=== PATIENT | female | born 1940 | race Caucasian/White ===

== ENCOUNTER 2018-10-20 15:24 | Inpatient (IN) | payer MEDICARE, BC ==
--- NOTE | 2018-10-20 14:38 | EDM.PDOC ---
ED HPI GENERAL MEDICAL PROBLEM - General Stated Complaint: WEAKNESS Time Seen by Provider: 10/20/18 14:25 Source of Information: Reports: Patient - History of Present Illness INITIAL COMMENTS - FREE TEXT/NARRATIVE: pt comes from assisted living with non-specific complaints , states for the past 2 days has been feeling gen weakness and not much of appetite, pt denies fever chills or any acute other sx, pt report Hx of chronic cough and dyspnea related to her COPD and tells me this has not changed lately, pt here appear comfortable with stable vitals, pt has no other medical concerns. - Related Data Allergies Allergy/AdvReac Type Severity Reaction Status Date / Time No Known Allergies Allergy Verified 10/20/18 14:49 Home Meds: Home Meds Diltiazem HCl [Dilt-Xr] 240 mg PO DAILY 10/20/18 [History] Docusate Sodium [Stool Softener] 100 mg PO DAILY 10/20/18 [History] Losartan [Cozaar] 50 mg PO DAILY 10/20/18 [History] Umeclidinium [place] [Incruse Ellipta] 62.5 mcg IN DAILY 10/20/18 [History] methIMAzole [Methimazole] 5 mg PO DAILY 10/20/18 [History] risperiDONE 0.25 mg PO DAILY 10/20/18 [History] risperiDONE 0.5 mg PO BEDTIME 10/20/18 [History] ED ROS GENERAL - Review of Systems Review Of Systems: See Below Constitutional: Reports: Fatigue. Denies: Fever, Chills HEENT: Reports: No Symptoms Respiratory: Reports: No Symptoms, Shortness of Breath, Cough, Other (pt has unchanged chronic dyspnea and cough. ) Cardiovascular: Reports: No Symptoms GI/Abdominal: Reports: Anorexia. Denies: Abdominal Pain, Constipation, Diarrhea , Nausea, Vomiting Musculoskeletal: Reports: No Symptoms Skin: Reports: No Symptoms Neurological: Reports: No Symptoms ED EXAM, GENERAL - Physical Exam Exam: See Below Exam Limited By: No Limitations General Appearance: Alert, No Apparent Distress Throat/Mouth: Normal Oropharynx Respiratory/Chest: No Respiratory Distress, Lungs Clear, Normal Breath Sounds, Chest Non-Tender Cardiovascular: Normal Peripheral Pulses, Regular Rate, Rhythm, No Edema GI/Abdominal: Normal Bowel Sounds, Soft, Non-Tender Extremities: Normal Inspection, Non-Tender. No: Pedal Edema Course - Vital Signs Text/Narrative:: labs and Xray results were explained to pt. pt has dehydration, elevated WBC and RLL infiltrates . will admit inpatient. pt recieved 1 liter of fluids here over 2 hrs , will continue at 125 cc/hr. blood cultures were taken and will start pt on rocephine and zithromax . discussed code brady with pt and she wishes to be a no code. Last Recorded V/S: Last Vital Signs Temp 36.7 C 10/20/18 14:12 Pulse 57 L 10/20/18 14:12 Resp 21 H 10/20/18 14:12 BP 172/71 H 10/20/18 14:12 Pulse Ox 91 L 10/20/18 14:12 - Orders/Labs/Meds Orders: Active Orders 24 hr Category Date Time Status Patient Status [ADT] Routine ADT 10/20/18 16:43 Active Pulse Oximetry [RC] PRN Care 10/20/18 16:43 Active RT Aerosol Therapy [RC] ASDIRECTED Care 10/20/18 16:49 Active Up With Assistance [RC] ASDIRECTED Care 10/20/18 16:43 Active Vital Signs [RC] Q4H Care 10/20/18 16:43 Active Heart Healthy Diet [DIET] Diet 10/20/18 Breakfast Ordered CXR [Chest 1V Frontal] [CR] Stat Exams 10/20/18 14:40 Taken CULTURE BLOOD [BC] Urgent Lab 10/20/18 16:48 Ordered CULTURE BLOOD [BC] Urgent Lab 10/20/18 16:48 Ordered CULTURE URINE [RM] Stat Lab 10/20/18 16:54 Ordered Albuterol/Ipratropium [DuoNeb 3.0-0.5 MG/3 ML] Med 10/20/18 16:48 Active 3 ml NEB Q6H PRN Azithromycin [Zithromax] 500 mg Med 10/20/18 17:00 Active Sodium Chloride 0.9% [Normal Saline] 250 ml IV Q24H Diltiazem [Dilacor XR] Med 10/21/18 09:00 Active 240 mg PO DAILY Docusate Sodium [Colace] Med 10/21/18 09:00 Active 100 mg PO DAILY Enoxaparin [Lovenox] Med 10/20/18 17:00 Active 40 mg SUBCUT DAILY Losartan [Cozaar] Med 10/21/18 09:00 Active 50 mg PO DAILY Magnesium Hydroxide [Milk of Magnesia] Med 10/20/18 16:43 Active 30 ml PO BID PRN Sodium Chloride 0.9% [Normal Saline] 1,000 ml Med 10/20/18 15:41 Active IV .BOLUS Sodium Chloride 0.9% [Normal Saline] 1,000 ml Med 10/20/18 17:00 Active IV ASDIRECTED cefTRIAXone [Rocephin] 1 gm Med 10/20/18 17:00 Active Sodium Chloride 0.9% [Normal Saline] 50 ml IV Q24H methIMAzole Med 10/21/18 09:00 Active 5 mg PO DAILY risperiDONE [RisperiDAL] Med 10/21/18 09:00 Active 0.25 mg PO DAILY risperiDONE [RisperiDAL] Med 10/20/18 21:00 Active 0.5 mg PO BEDTIME Blood Culture x2 Reflex Set [OM.PC] Urgent Oth 10/20/18 16:47 Ordered Resuscitation Status Routine Resus Stat 10/20/18 16:43 Ordered Medication Orders Albuterol/Ipratropium (Duoneb 3.0-0.5 Mg/3 Ml) 3 ml NEB Q6H PRN PRN Reason: Shortness of Breath Diltiazem HCl (Dilacor Xr) 240 mg PO DAILY [facility] Docusate Sodium (Colace) 100 mg PO DAILY [facility] Enoxaparin Sodium (Lovenox) 40 mg SUBCUT DAILY [facility] Sodium Chloride (Normal Saline) 1,000 mls @ 500 drops/hr IV .BOLUS ONE Stop: 10/21/18 21:40 Last Admin: 10/20/18 16:03 Dose: 500 drops/hr Azithromycin 500 mg/ Sodium (Chloride) 250 mls @ 250 mls/hr IV Q24H [facility] Ceftriaxone Sodium 1 gm/ (Sodium Chloride) 50 mls @ 200 mls/hr IV Q24H [facility] Sodium Chloride (Normal Saline) 1,000 mls @ 125 mls/hr IV ASDIRECTED [facility] Losartan Potassium (Cozaar) 50 mg PO DAILY [facility] Magnesium Hydroxide (Milk Of Magnesia) 30 ml PO BID PRN PRN Reason: Constipation Methimazole (Methimazole) 5 mg PO DAILY [facility] Risperidone (Risperidal) 0.5 mg PO BEDTIME [facility] Risperidone (Risperidal) 0.25 mg PO DAILY [facility] Labs: Laboratory Tests 10/20/18 10/20/18 10/20/18 Range/Units 14:55 14:55 14:55 WBC 24.2 H (4.5-12.0) X10-3/uL RBC 4.17 (3.23-5.20) x10(6)uL Hgb 13.4 (11.5-15.5) g/dL Hct 39.3 (30.0-51.3) % MCV 94.4 (80-96) fL MCH 32.0 (27.7-33.6) pg MCHC 34.0 (32.2-35.4) g/dL RDW 14.5 (11.5-15.5) % Plt Count 418 H (125-369) X10(3)uL MPV 6.7 L (7.4-10.4) fL Add Manual Diff Yes Neutrophils % (Manual) 93 H (46-82) % Band Neutrophils % 1 (0-6) % Lymphocytes % (Manual) 3 L (13-37) % Monocytes % (Manual) 3 L (4-12) % Sodium 126 L (135-145) mmol/L Potassium 4.4 (3.5-5.3) mmol/L Chloride 85 L* (100-110) mmol/L Carbon Dioxide 29 (21-32) mmol/L BUN 36 H (7-18) mg/dL Creatinine 0.8 (0.55-1.02) mg/dL Est Cr Clr Drug Dosing 39.84 mL/min Estimated GFR (MDRD) > 60 (>60) BUN/Creatinine Ratio 45.0 H (9-20) Glucose 63 L (80-116) mg/dL Calcium 9.1 (8.6-10.2) mg/dL Total Bilirubin 0.6 (0.1-1.3) mg/dL AST 41 H (5-25) IU/L ALT 32 (12-36) U/L Alkaline Phosphatase 102 (56-112) IU/L Total Protein 7.5 (6.0-8.0) g/dL Albumin 3.9 (3.2-4.6) g/dL Globulin 3.6 g/dL Albumin/Globulin Ratio 1.1 Urine Color (YELLOW) Urine Appearance (CLEAR) Urine pH (5.0-6.5) Ur Specific [place] (1.010-1.025) Urine Protein (NEGATIVE) mg/dL Urine Glucose (UA) (NORMAL) mg/dL Urine Ketones (NEGATIVE) mg/dL Urine Occult Blood (NEGATIVE) Urine Nitrite (NEGATIVE) Urine Bilirubin (NEGATIVE) Urine Urobilinogen (NEGATIVE) mg/dL Ur Leukocyte Esterase (NEGATIVE) Urine RBC (0-5) Urine WBC (0-5) Ur Squamous Epith Cells (NS,R,O) Urine Bacteria (NS) Ethyl Alcohol < 0.03 (<0.03) % 10/20/18 Range/Units 16:41 WBC (4.5-12.0) X10-3/uL RBC (3.23-5.20) x10(6)uL Hgb (11.5-15.5) g/dL Hct (30.0-51.3) % MCV (80-96) fL MCH (27.7-33.6) pg MCHC (32.2-35.4) g/dL RDW (11.5-15.5) % Plt Count (125-369) X10(3)uL MPV (7.4-10.4) fL Add Manual Diff Neutrophils % (Manual) (46-82) % Band Neutrophils % (0-6) % Lymphocytes % (Manual) (13-37) % Monocytes % (Manual) (4-12) % Sodium (135-145) mmol/L Potassium (3.5-5.3) mmol/L Chloride (100-110) mmol/L Carbon Dioxide (21-32) mmol/L BUN (7-18) mg/dL Creatinine (0.55-1.02) mg/dL Est Cr Clr Drug Dosing mL/min Estimated GFR (MDRD) (>60) BUN/Creatinine Ratio (9-20) Glucose (80-116) mg/dL Calcium (8.6-10.2) mg/dL Total Bilirubin (0.1-1.3) mg/dL AST (5-25) IU/L ALT (12-36) U/L Alkaline Phosphatase (56-112) IU/L Total Protein (6.0-8.0) g/dL Albumin (3.2-4.6) g/dL Globulin g/dL Albumin/Globulin Ratio Urine Color Yellow (YELLOW) Urine Appearance Clear (CLEAR) Urine pH 5.0 (5.0-6.5) Ur Specific [place] 1.025 (1.010-1.025) Urine Protein Negative (NEGATIVE) mg/dL Urine Glucose (UA) Normal (NORMAL) mg/dL Urine Ketones 50 H (NEGATIVE) mg/dL Urine Occult Blood Trace (NEGATIVE) Urine Nitrite Positive H (NEGATIVE) Urine Bilirubin Negative (NEGATIVE) Urine Urobilinogen Normal (NEGATIVE) mg/dL Ur Leukocyte Esterase Negative (NEGATIVE) Urine RBC 0-5 (0-5) Urine WBC 0-5 (0-5) Ur Squamous Epith Cells Few H (NS,R,O) Urine Bacteria Many H (NS) Ethyl Alcohol (<0.03) % Meds: Medications Generic Name Dose Route Start Last Admin Trade Name Freq PRN Reason Stop Dose Admin Albuterol/Ipratropium 3 ml 10/20/18 16:48 Duoneb 3.0-0.5 Mg/3 Ml NEB Q6H PRN Shortness of Breath Diltiazem HCl 240 mg 10/21/18 09:00 Dilacor Xr PO DAILY [facility] Docusate Sodium 100 mg 10/21/18 09:00 Colace PO DAILY [facility] Enoxaparin Sodium 40 mg 10/20/18 17:00 Lovenox SUBCUT DAILY [facility] Sodium Chloride 1,000 mls @ 500 drops/hr 10/20/18 15:41 10/20/18 16:03 Normal Saline IV 10/21/18 21:40 500 drops/hr .BOLUS ONE Administration Azithromycin 500 mg/ Sodium 250 mls @ 250 mls/hr 10/20/18 17:00 Chloride IV Q24H [facility] Ceftriaxone Sodium 1 gm/ 50 mls @ 200 mls/hr 10/20/18 17:00 Sodium Chloride IV Q24H [facility] Sodium Chloride 1,000 mls @ 125 mls/hr 10/20/18 17:00 Normal Saline IV ASDIRECTED [facility] Losartan Potassium 50 mg 10/21/18 09:00 Cozaar PO DAILY [facility] Magnesium Hydroxide 30 ml 10/20/18 16:43 Milk Of Magnesia PO BID PRN Constipation Methimazole 5 mg 10/21/18 09:00 Methimazole PO DAILY [facility] Risperidone 0.5 mg 10/20/18 21:00 Risperidal PO BEDTIME [facility] Risperidone 0.25 mg 10/21/18 09:00 Risperidal PO DAILY [facility] Departure - Departure Time of Disposition: 16:58 Disposition: Admitted As Inpatient 68 Clinical Impression: RLL pneumonia - Discharge Information Instructions: Dental Abscess, [id number], Ingrown Toenail Referrals: Kina Chance NP [Primary Care Provider] - Additional Instructions: follow up with your dentist for your toothache follow up with your primary care for your ingrown toenail - My Orders Last 24 Hours: My Active Orders 10/20/18 14:40 CXR [Chest 1V Frontal] [CR] Stat 10/20/18 15:41 Sodium Chloride 0.9% [Normal Saline] 1,000 ml IV .BOLUS 10/20/18 16:43 Patient Status [ADT] Routine Pulse Oximetry [RC] PRN Up With Assistance [RC] ASDIRECTED Vital Signs [RC] Q4H Magnesium Hydroxide [Milk of Magnesia] 30 ml PO BID PRN Resuscitation Status Routine 10/20/18 16:47 Blood Culture x2 Reflex Set [OM.PC] Urgent 10/20/18 16:48 CULTURE BLOOD [BC] Urgent CULTURE BLOOD [BC] Urgent Albuterol/Ipratropium [DuoNeb 3.0-0.5 MG/3 ML] 3 ml NEB Q6H PRN 10/20/18 16:49 RT Aerosol Therapy [RC] ASDIRECTED 10/20/18 16:54 CULTURE URINE [RM] Stat 10/20/18 17:00 Azithromycin [Zithromax] 500 mg Sodium Chloride 0.9% [Normal Saline] 250 ml IV Q24H Enoxaparin [Lovenox] 40 mg SUBCUT DAILY Sodium Chloride 0.9% [Normal Saline] 1,000 ml IV ASDIRECTED cefTRIAXone [Rocephin] 1 gm Sodium Chloride 0.9% [Normal Saline] 50 ml IV Q24H 10/20/18 21:00 risperiDONE [RisperiDAL] 0.5 mg PO BEDTIME 10/20/18 Breakfast Heart Healthy Diet [DIET] 10/21/18 09:00 Diltiazem [Dilacor XR] 240 mg PO DAILY Docusate Sodium [Colace] 100 mg PO DAILY Losartan [Cozaar] 50 mg PO DAILY methIMAzole 5 mg PO DAILY risperiDONE [RisperiDAL] 0.25 mg PO DAILY - Assessment/Plan Last 24 Hours: My Active Orders 10/20/18 14:40 CXR [Chest 1V Frontal] [CR] Stat 10/20/18 15:41 Sodium Chloride 0.9% [Normal Saline] 1,000 ml IV .BOLUS 10/20/18 16:43 Patient Status [ADT] Routine Pulse Oximetry [RC] PRN Up With Assistance [RC] ASDIRECTED Vital Signs [RC] Q4H Magnesium Hydroxide [Milk of Magnesia] 30 ml PO BID PRN Resuscitation Status Routine 10/20/18 16:47 Blood Culture x2 Reflex Set [OM.PC] Urgent 10/20/18 16:48 CULTURE BLOOD [BC] Urgent CULTURE BLOOD [BC] Urgent Albuterol/Ipratropium [DuoNeb 3.0-0.5 MG/3 ML] 3 ml NEB Q6H PRN 10/20/18 16:49 RT Aerosol Therapy [RC] ASDIRECTED 10/20/18 16:54 CULTURE URINE [RM] Stat 10/20/18 17:00 Azithromycin [Zithromax] 500 mg Sodium Chloride 0.9% [Normal Saline] 250 ml IV Q24H Enoxaparin [Lovenox] 40 mg SUBCUT DAILY Sodium Chloride 0.9% [Normal Saline] 1,000 ml IV ASDIRECTED cefTRIAXone [Rocephin] 1 gm Sodium Chloride 0.9% [Normal Saline] 50 ml IV Q24H 10/20/18 21:00 risperiDONE [RisperiDAL] 0.5 mg PO BEDTIME 10/20/18 Breakfast Heart Healthy Diet [DIET] 10/21/18 09:00 Diltiazem [Dilacor XR] 240 mg PO DAILY Docusate Sodium [Colace] 100 mg PO DAILY Losartan [Cozaar] 50 mg PO DAILY methIMAzole 5 mg PO DAILY risperiDONE [RisperiDAL] 0.25 mg PO DAILY
[2018-10-20] MEDS ORDERED: Sodium Chloride 0.9% 1,000 ML IV ONE (15:41)
[2018-10-20] MEDS ORDERED: Magnesium Hydroxide 400 MG/5 ML Susp 30 ML Cup PO PRN (16:43)
[2018-10-20] MEDS ORDERED: Enoxaparin 40 MG/0.4 ML Syringe SUBCUT SCH (17:00)
[2018-10-20] MEDS ORDERED: cefTRIAXone 1 GM in Sodium Chloride 0.9% 50 ML IV SCH (17:00)
[2018-10-20] MEDS: Sodium Chloride 0.9% 1,000 ML IV SCH (18:30)
[2018-10-20] MEDS: Azithromycin 500 MG in Sodium Chloride 0.9% 250 ML IV SCH (18:53)
[2018-10-20] MEDS: Albuterol/Ipratropium 3.0-0.5 MG/3 ML Neb Soln NEB PRN (20:26)
[2018-10-20] MEDS: risperiDONE 0.5 MG Tab PO SCH (20:26)
[2018-10-21] MEDS: Sodium Chloride 0.9% 1,000 ML IV SCH ×2 (03:44→15:34)
--- NOTE | 2018-10-21 07:52 | CR ---
INDICATION: Cough. CHEST: A portable AP upright view of the chest was obtained 10/20/18 and compared with 01/05/12 and 01/03/12. The heart appears somewhat enlarged, compared with previous studies. The aorta is tortuous with minimal calcification in the arch. Findings suggesting COPD are noted. Markings appear similar to the previous examinations, allowing for changes in positioning and technique, without a definite active infiltrate or effusion identified. Overlying EKG leads are noted. IMPRESSION: 1. Progressive ASHD with cardiomegaly. 2. Probable COPD. 3. No definite acute abnormality. MTDD
--- NOTE | 2018-10-21 08:07 | PCM.HP ---
H&P History of Present Illness - General Date of Service: 10/21/18 Admit Problem/Dx: Admission Diagnosis/Problem Admission Diagnosis/Problem Pneumonia Source of Information: Patient History Limitations: Reports: No Limitations - History of Present Illness Initial Comments - Free Text/Narative: This is a 78-year-old female patient from [facility] with a history of COPD. She said the last 4 days she's been feeling more weak and lethargic. And then the day of admission she started feeling very short of breath. She says she called 911 and had ambulance, take her to the ER. She denies coughing, wheezing, fevers, chills, nasal congestion, ear pain. She has no history of thromboembolus events or family history of them. She denies chest pain. She says she has a funny heartbeat but that's normal for her. She is on 1 inhaler as per the medication list for her COPD. - Related Data Allergies/Adverse Reactions: Allergies Allergy/AdvReac Type Severity Reaction Status Date / Time No Known Allergies Allergy Verified 10/20/18 14:49 Home Medications: Home Meds Diltiazem HCl [Dilt-Xr] 240 mg PO DAILY 10/20/18 [History] Docusate Sodium [Stool Softener] 100 mg PO DAILY 10/20/18 [History] Losartan [Cozaar] 50 mg PO DAILY 10/20/18 [History] Umeclidinium Britt [Incruse Ellipta] 62.5 mcg IN DAILY 10/20/18 [History] methIMAzole [Methimazole] 5 mg PO DAILY 10/20/18 [History] risperiDONE 0.25 mg PO DAILY 10/20/18 [History] risperiDONE 0.5 mg PO BEDTIME 10/20/18 [History] Past Medical History HEENT History: Reports: Cataract Cardiovascular History: Reports: Hypertension Respiratory History: Reports: COPD Endocrine/Metabolic History: Reports: Hyperthyroidism - Past Surgical History HEENT Surgical History: Reports: Other (See Below) Other HEENT Surgeries/Procedures: States she has not had cataract surgery. GI Surgical History: Reports: Other (See Below) (Partial colectomy) Social & Family History - Family History Family Medical History: Noncontributory - Tobacco Use Smoking Status *Q: Former Smoker Years of Tobacco use: 50 Used Tobacco, but Quit: No Month/Year Tobacco Last Used: 300 - Caffeine Use Caffeine Use: Reports: Coffee - Alcohol Use Days Per Week of Alcohol Use: 1 Number of Drinks Per Day: 2 Total Drinks Per Week: 2 - Recreational Drug Use Recreational Drug Use: No H&P Review of Systems - Review of Systems: Review Of Systems: See Below General: Reports: Weakness HEENT: Reports: No Symptoms Pulmonary: Reports: Shortness of Breath. Denies: Wheezing, Pleuritic Chest Pain , Cough, Sputum, Hemoptysis Cardiovascular: Reports: No Symptoms Gastrointestinal: Reports: No Symptoms Genitourinary: Reports: No Symptoms Musculoskeletal: Reports: No Symptoms Skin: Reports: No Symptoms Psychiatric: Reports: No Symptoms Neurological: Reports: No Symptoms Hematologic/Lymphatic: Reports: No Symptoms Immunologic: Reports: No Symptoms Exam - Exam Exam: See Below - Vital Signs Vital Signs: Last Vital Signs Temp 98.8 F 10/21/18 06:43 Pulse 109 H 10/21/18 06:43 Resp 20 10/21/18 06:43 BP 152/77 H 10/21/18 06:43 Pulse Ox 96 10/21/18 06:43 Weight: 94 lb 12.8 oz - Exam General: Alert, Oriented, Cooperative HEENT: Hearing Intact, Mucosa Moist & [place], Posterior Pharynx Clear, TMs Clear Neck: Supple, Trachea Midline. No: Carotid Bruit, JVD Lungs: Normal Respiratory Effort, Decreased Breath Sounds, Other (Pursed lip breathing) Cardiovascular: Regular Rate, Tachycardia. No: Systolic Murmur, Diastolic Murmur GI/Abdominal Exam: Normal Bowel Sounds, Non-Tender, No Organomegaly, No Distention, No Abnormal Bruit, No Mass Back Exam: Normal Inspection, Full Range of Motion Extremities: Normal Inspection, Non-Tender, No Pedal Edema Skin: Warm, Dry, Intact Neurological: Normal Speech, Normal Tone Neuro Extensive - Mental Status: Alert, Oriented x3, Normal Mood/Affect, Normal Cognition, Memory Intact Psychiatric: Alert, Normal Affect, Normal Mood - Patient Data Lab Results Last 24 hrs: Laboratory Results - last 24 hr 10/20/18 10/20/18 10/20/18 Range/Units 14:55 14:55 14:55 WBC 24.2 H (4.5-12.0) X10-3/uL RBC 4.17 (3.23-5.20) x10(6)uL Hgb 13.4 (11.5-15.5) g/dL Hct 39.3 (30.0-51.3) % MCV 94.4 (80-96) fL MCH 32.0 (27.7-33.6) pg MCHC 34.0 (32.2-35.4) g/dL RDW 14.5 (11.5-15.5) % Plt Count 418 H (125-369) X10(3)uL MPV 6.7 L (7.4-10.4) fL Add Manual Diff Yes Neutrophils % (Manual) 93 H (46-82) % Band Neutrophils % 1 (0-6) % Lymphocytes % (Manual) 3 L (13-37) % Monocytes % (Manual) 3 L (4-12) % Sodium 126 L (135-145) mmol/L Potassium 4.4 (3.5-5.3) mmol/L Chloride 85 L* (100-110) mmol/L Carbon Dioxide 29 (21-32) mmol/L BUN 36 H (7-18) mg/dL Creatinine 0.8 (0.55-1.02) mg/dL Est Cr Clr Drug Dosing 39.84 mL/min Estimated GFR (MDRD) > 60 (>60) BUN/Creatinine Ratio 45.0 H (9-20) Glucose 63 L (80-116) mg/dL Calcium 9.1 (8.6-10.2) mg/dL Total Bilirubin 0.6 (0.1-1.3) mg/dL AST 41 H (5-25) IU/L ALT 32 (12-36) U/L Alkaline Phosphatase 102 (56-112) IU/L Total Protein 7.5 (6.0-8.0) g/dL Albumin 3.9 (3.2-4.6) g/dL Globulin 3.6 g/dL Albumin/Globulin Ratio 1.1 Urine Color (YELLOW) Urine Appearance (CLEAR) Urine pH (5.0-6.5) Ur Specific [place] (1.010-1.025) Urine Protein (NEGATIVE) mg/dL Urine Glucose (UA) (NORMAL) mg/dL Urine Ketones (NEGATIVE) mg/dL Urine Occult Blood (NEGATIVE) Urine Nitrite (NEGATIVE) Urine Bilirubin (NEGATIVE) Urine Urobilinogen (NEGATIVE) mg/dL Ur Leukocyte Esterase (NEGATIVE) Urine RBC (0-5) Urine WBC (0-5) Ur Squamous Epith Cells (NS,R,O) Urine Bacteria (NS) Ethyl Alcohol < 0.03 (<0.03) % 10/20/18 Range/Units 16:41 WBC (4.5-12.0) X10-3/uL RBC (3.23-5.20) x10(6)uL Hgb (11.5-15.5) g/dL Hct (30.0-51.3) % MCV (80-96) fL MCH (27.7-33.6) pg MCHC (32.2-35.4) g/dL RDW (11.5-15.5) % Plt Count (125-369) X10(3)uL MPV (7.4-10.4) fL Add Manual Diff Neutrophils % (Manual) (46-82) % Band Neutrophils % (0-6) % Lymphocytes % (Manual) (13-37) % Monocytes % (Manual) (4-12) % Sodium (135-145) mmol/L Potassium (3.5-5.3) mmol/L Chloride (100-110) mmol/L Carbon Dioxide (21-32) mmol/L BUN (7-18) mg/dL Creatinine (0.55-1.02) mg/dL Est Cr Clr Drug Dosing mL/min Estimated GFR (MDRD) (>60) BUN/Creatinine Ratio (9-20) Glucose (80-116) mg/dL Calcium (8.6-10.2) mg/dL Total Bilirubin (0.1-1.3) mg/dL AST (5-25) IU/L ALT (12-36) U/L Alkaline Phosphatase (56-112) IU/L Total Protein (6.0-8.0) g/dL Albumin (3.2-4.6) g/dL Globulin g/dL Albumin/Globulin Ratio Urine Color Yellow (YELLOW) Urine Appearance Clear (CLEAR) Urine pH 5.0 (5.0-6.5) Ur Specific [place] 1.025 (1.010-1.025) Urine Protein Negative (NEGATIVE) mg/dL Urine Glucose (UA) Normal (NORMAL) mg/dL Urine Ketones 50 H (NEGATIVE) mg/dL Urine Occult Blood Trace (NEGATIVE) Urine Nitrite Positive H (NEGATIVE) Urine Bilirubin Negative (NEGATIVE) Urine Urobilinogen Normal (NEGATIVE) mg/dL Ur Leukocyte Esterase Negative (NEGATIVE) Urine RBC 0-5 (0-5) Urine WBC 0-5 (0-5) Ur Squamous Epith Cells Few H (NS,R,O) Urine Bacteria Many H (NS) Ethyl Alcohol (<0.03) % Result Diagrams: 10/20/18 14:55 10/20/18 14:55 Cameron Results Last 24 hrs: Microbiology 10/20/18 14:40 Influenza Type A Antigen Screen - Final Nasal Aspirate, Unspecified NEGATIVE INFLUENZA A VIRUS AG Influenza Type B Antigen Screen - Final NEGATIVE INFLUENZA B VIRUS AG - Problem List (1) COPD exacerbation SNOMED Code(s): 307712655 ICD Code: J44.1 - CHRONIC OBSTRUCTIVE PULMONARY DISEASE W (ACUTE) EXACERBATION Status: Acute Current Visit: Yes (2) Hyponatremia SNOMED Code(s): 02162375 ICD Code: E87.1 - HYPO-OSMOLALITY AND HYPONATREMIA Status: Acute Current Visit: Yes (3) Palliative care status SNOMED Code(s): 693877216 ICD Code: Z51.5 - ENCOUNTER FOR PALLIATIVE CARE Status: Acute Current Visit: Yes (4) On home oxygen therapy SNOMED Code(s): 312929078540 ICD Code: Z99.81 - DEPENDENCE ON SUPPLEMENTAL OXYGEN Status: Acute Current Visit: Yes (5) RLL pneumonia SNOMED Code(s): 832496353 ICD Code: J18.1 - LOBAR PNEUMONIA, UNSPECIFIED ORGANISM Status: Acute Current Visit: Yes Problem List Initiated/Reviewed/Updated: Yes Orders Last 24hrs: Active Orders 24 hr Category Date Time Status Patient Status [ADT] Routine ADT 10/20/18 16:43 Active Oxygen Therapy Adult [Oxygen Therapy] [RC] ASDIRECTED Care 10/20/18 17:20 Active Pulse Oximetry [RC] PRN Care 10/20/18 16:43 Active RT Aerosol Therapy [RC] ASDIRECTED Care 10/20/18 16:49 Active Up With Assistance [RC] ASDIRECTED Care 10/20/18 16:43 Active Vital Signs [RC] 00,04,08,12,16,20 Care 10/20/18 16:43 Active CBC WITH AUTO DIFF [HEME] Routine Lab 10/21/18 07:23 Ordered COMPREHENSIVE METABOLIC PN,CMP [CHEM] Routine Lab 10/21/18 07:23 Ordered CULTURE BLOOD [BC] Urgent Lab 10/20/18 16:55 Received CULTURE BLOOD [BC] Urgent Lab 10/20/18 17:01 Received CULTURE URINE [RM] Stat Lab 10/20/18 16:54 Received Albuterol/Ipratropium [DuoNeb 3.0-0.5 MG/3 ML] Med 10/20/18 16:48 Active 3 ml NEB Q6H PRN Azithromycin [Zithromax] 500 mg Med 10/20/18 17:00 Active Sodium Chloride 0.9% [Normal Saline] 250 ml IV Q24H Diltiazem [Dilacor XR] Med 10/21/18 09:00 Active 240 mg PO DAILY Docusate Sodium [Colace] Med 10/21/18 09:00 Active 100 mg PO DAILY Enoxaparin [Lovenox] Med 10/21/18 18:00 Active 40 mg SUBCUT DAILY@1800 Losartan [Cozaar] Med 10/21/18 09:00 Active 50 mg PO DAILY Magnesium Hydroxide [Milk of Magnesia] Med 10/20/18 16:43 Active 30 ml PO BID PRN Sodium Chloride 0.9% [Normal Saline] 1,000 ml Med 10/20/18 15:41 Active IV .BOLUS Sodium Chloride 0.9% [Normal Saline] 1,000 ml Med 10/20/18 17:00 Active IV ASDIRECTED Umeclidinium Britt [Incruse Ellipta] Med 10/21/18 09:00 Ordered 62.5 mcg IN DAILY cefTRIAXone [Rocephin] 1 gm Med 10/20/18 17:00 Active Sodium Chloride 0.9% [Normal Saline] 50 ml IV Q24H methIMAzole Med 10/21/18 09:00 Active 5 mg PO DAILY risperiDONE [RisperiDAL] Med 10/21/18 09:00 Active 0.25 mg PO DAILY risperiDONE [RisperiDAL] Med 10/20/18 21:00 Active 0.5 mg PO BEDTIME Blood Culture x2 Reflex Set [OM.PC] Urgent Oth 10/20/18 16:47 Ordered Resuscitation Status Routine Resus Stat 10/20/18 16:43 Ordered Medication Orders Albuterol/Ipratropium (Duoneb 3.0-0.5 Mg/3 Ml) 3 ml NEB Q6H PRN PRN Reason: Shortness of Breath Last Admin: 10/20/18 20:26 Dose: 3 ml Diltiazem HCl (Dilacor Xr) 240 mg PO DAILY [facility] Docusate Sodium (Colace) 100 mg PO DAILY [facility] Enoxaparin Sodium (Lovenox) 40 mg SUBCUT DAILY@1800 [facility] Sodium Chloride (Normal Saline) 1,000 mls @ 500 drops/hr IV .BOLUS ONE Stop: 10/21/18 21:40 Last Admin: 10/20/18 16:03 Dose: 500 drops/hr Azithromycin 500 mg/ Sodium (Chloride) 250 mls @ 250 mls/hr IV Q24H [facility] [place] Last Admin: 10/20/18 18:53 Dose: 250 mls/hr Ceftriaxone Sodium 1 gm/ (Sodium Chloride) 50 mls @ 200 mls/hr IV Q24H [facility] [place] Last Admin: 10/20/18 18:22 Dose: 200 mls/hr Sodium Chloride (Normal Saline) 1,000 mls @ 125 mls/hr IV ASDIRECTED [facility] Last Admin: 10/21/18 03:44 Dose: 125 mls/hr Infusion: 10/21/18 02:30 Dose: 125 mls/hr Admin: 10/20/18 18:30 Dose: 125 mls/hr Losartan Potassium (Cozaar) 50 mg PO DAILY [facility] Magnesium Hydroxide (Milk Of Magnesia) 30 ml PO BID PRN PRN Reason: Constipation Methimazole (Methimazole) 5 mg PO DAILY [facility] Non-Formulary Medication (Umeclidinium Britt [Incruse Ellipta]) 62.5 mcg IN DAILY [facility] Risperidone (Risperidal) 0.5 mg PO BEDTIME [facility] Last Admin: 10/20/18 20:26 Dose: 0.5 mg Risperidone (Risperidal) 0.25 mg PO DAILY [facility] Assessment/Plan Comment:: 1. Admit to inpatient. 2. Patient wants to be a DNR 3. VTE prophylaxis with Lovenox and SCD. 4. Rocephin was Zithromax. 5. Blood cultures 2. 6. Sputum culture. 7. Continue home medications. 8. Prednisone 60 mg a day. 9. O2 to keep sats roughly 89-93% 10. Up with assist. 11. PT/OT. 12. Repeat labs and check a d-dimer.
[2018-10-21] MEDS: Albuterol/Ipratropium 3.0-0.5 MG/3 ML Neb Soln NEB PRN ×2 (08:58→18:22)
[2018-10-21] MEDS: Losartan 50 MG Tab PO SCH (10:28)
[2018-10-21] MEDS: Docusate Sodium 100 MG Cap PO SCH (10:28)
[2018-10-21] MEDS: risperiDONE 0.25 MG Tab PO SCH (10:29)
[2018-10-21] MEDS: Diltiazem 240 MG Cap.ER PO SCH (10:29)
[2018-10-21] MEDS: Tiotropium Inhaler 18 MCG Inhalation Powder Cap Kit of 5 INH SCH (10:34)
[2018-10-21] MEDS: Methimazole 5 MG Tab PO SCH (10:34)
[2018-10-21] MEDS ORDERED: predniSONE 20 MG Tab PO SCH (17:15)
[2018-10-21] MEDS ORDERED: LORazepam 0.5 MG Tab PO PRN (17:20)
[2018-10-21] MEDS: cefTRIAXone 1 GM Vial IV SCH (18:14)
[2018-10-21] MEDS: Enoxaparin 40 MG/0.4 ML Syringe SUBCUT SCH (18:16)
[2018-10-21] MEDS: Azithromycin 500 MG in Sodium Chloride 0.9% 250 ML IV SCH (18:18)
[2018-10-21] MEDS: risperiDONE 0.5 MG Tab PO SCH (20:16)
[2018-10-22] MEDS: Albuterol/Ipratropium 3.0-0.5 MG/3 ML Neb Soln NEB PRN (02:29)
[2018-10-22] MEDS ORDERED: Morphine 2 MG/ML Syringe IVPUSH ONE (02:53)
[2018-10-22] MEDS ORDERED: Furosemide 20 MG/2 ML VIAL IVPUSH ONE (02:55)
--- NOTE | 2018-10-22 08:02 | PCM.PN ---
- General Info Date of Service: 10/22/18 Admission Dx/Problem (Free Text): Patient states she is about the same as yesterday with her breathing appears still coughing a little bit and short of breath. Her chest feels tight and she' s not moving much air. Should 2 episodes yesterday where she desatted. Then it came back and she was given morphine, Lasix and Ativan. She denies fevers, leg swelling, chest pain. - Patient Data Vitals - Most Recent: Last Vital Signs Temp 96.8 F 10/22/18 00:00 Pulse 111 H 10/22/18 02:50 Resp 22 H 10/22/18 02:50 BP 145/71 H 10/22/18 02:27 Pulse Ox 84 L 10/22/18 02:50 Weight - Most Recent: 101 lb 12.8 oz I&O - Last 24 Hours: Intake & Output 10/21/18 10/22/18 10/22/18 22:59 06:59 14:59 Intake Total 200 974 Balance 200 974 Lab Results Last 24 Hours: Laboratory Results - last 24 hr 10/21/18 10/21/18 10/21/18 Range/Units 08:00 08:00 08:00 WBC 14.3 H (4.5-12.0) X10-3/uL RBC 3.95 (3.23-5.20) x10(6)uL Hgb 12.3 (11.5-15.5) g/dL Hct 37.3 (30.0-51.3) % MCV 94.4 (80-96) fL MCH 31.2 (27.7-33.6) pg MCHC 33.0 (32.2-35.4) g/dL RDW 14.6 (11.5-15.5) % Plt Count 364 (125-369) X10(3)uL MPV 6.6 L (7.4-10.4) fL Add Manual Diff Yes Neutrophils % (Manual) 91 H (46-82) % Lymphocytes % (Manual) 8 L (13-37) % Monocytes % (Manual) 1 L (4-12) % D-Dimer, Quantitative 0.45 (0.0-0.59) mg/LFEU Sodium 128 L (135-145) mmol/L Potassium 4.6 (3.5-5.3) mmol/L Chloride 91 L D (100-110) mmol/L Carbon Dioxide 31 (21-32) mmol/L BUN 20 H D (7-18) mg/dL Creatinine 0.5 L (0.55-1.02) mg/dL Est Cr Clr Drug Dosing 64.98 mL/min Estimated GFR (MDRD) > 60 (>60) BUN/Creatinine Ratio 40.0 H (9-20) Glucose 82 (80-116) mg/dL Calcium 8.3 L (8.6-10.2) mg/dL Total Bilirubin 0.9 (0.1-1.3) mg/dL AST 38 H (5-25) IU/L ALT 27 D (12-36) U/L Alkaline Phosphatase 81 (56-112) IU/L Total Protein 6.6 (6.0-8.0) g/dL Albumin 3.3 (3.2-4.6) g/dL Globulin 3.3 g/dL Albumin/Globulin Ratio 1.0 10/22/18/ Range/Units 05:55 05:55 WBC 12.1 H (4.5-12.0) X10-3/uL RBC 3.72 (3.23-5.20) x10(6)uL Hgb 12.1 (11.5-15.5) g/dL Hct 35.7 (30.0-51.3) % MCV 96.2 H (80-96) fL MCH 32.5 (27.7-33.6) pg MCHC 33.8 (32.2-35.4) g/dL RDW 14.5 (11.5-15.5) % Plt Count 284 (125-369) X10(3)uL MPV 6.9 L (7.4-10.4) fL Add Manual Diff Yes Neutrophils % (Manual) 96 H (46-82) % Lymphocytes % (Manual) 3 L (13-37) % Monocytes % (Manual) 1 L (4-12) % D-Dimer, Quantitative (0.0-0.59) mg/LFEU Sodium 130 L (135-145) mmol/L Potassium 4.6 (3.5-5.3) mmol/L Chloride 90 L (100-110) mmol/L Carbon Dioxide 34 H (21-32) mmol/L BUN 19 H (7-18) mg/dL Creatinine 0.6 (0.55-1.02) mg/dL Est Cr Clr Drug Dosing 57.30 mL/min Estimated GFR (MDRD) > 60 (>60) BUN/Creatinine Ratio 31.7 H (9-20) Glucose 166 H D (80-116) mg/dL Calcium 8.8 (8.6-10.2) mg/dL Total Bilirubin (0.1-1.3) mg/dL AST (5-25) IU/L ALT (12-36) U/L Alkaline Phosphatase (56-112) IU/L Total Protein (6.0-8.0) g/dL Albumin (3.2-4.6) g/dL Globulin g/dL Albumin/Globulin Ratio Cameron Results Last 24 Hours: Microbiology 10/20/18 17:01 Aerobic Blood Culture - Preliminary Blood - Venous - Lab Draw NO GROWTH AFTER 1 DAY Anaerobic Blood Culture - Preliminary NO GROWTH AFTER 1 DAY 10/20/18 16:55 Aerobic Blood Culture - Preliminary Blood - Venous NO GROWTH AFTER 1 DAY Anaerobic Blood Culture - Preliminary NO GROWTH AFTER 1 DAY 10/20/18 16:54 Urine Culture - Preliminary Urine, Catheterized MIXED POSITIVE PEREZ DAY 1 Med Orders - Current: Current Medications Ceftriaxone Sodium (Rocephin) 1 gm IV Q24H [facility] Last Admin: 10/21/18 18:14 Dose: 1 gm Diltiazem HCl (Dilacor Xr) 240 mg PO DAILY [facility] Last Admin: 10/21/18 10:29 Dose: 240 mg Docusate Sodium (Colace) 100 mg PO DAILY [facility] Last Admin: 10/21/18 10:28 Dose: 100 mg Enoxaparin Sodium (Lovenox) 40 mg SUBCUT DAILY@1800 [facility] Last Admin: 10/21/18 18:16 Dose: 40 mg Azithromycin 500 mg/ Sodium (Chloride) 250 mls @ 250 mls/hr IV Q24H [facility] Last Admin: 10/21/18 18:18 Dose: 250 mls/hr Sodium Chloride (Normal Saline) 1,000 mls @ 50 mls/hr IV ASDIRECTED [facility] Last Admin: 10/21/18 15:34 Dose: 50 mls/hr Lorazepam (Ativan) 0.5 mg PO Q6H PRN PRN Reason: Anxiety Last Admin: 10/22/18 02:45 Dose: 0.5 mg Losartan Potassium (Cozaar) 50 mg PO DAILY [facility] Last Admin: 10/21/18 10:28 Dose: 50 mg Magnesium Hydroxide (Milk Of Magnesia) 30 ml PO BID PRN PRN Reason: Constipation Methimazole (Methimazole) 5 mg PO DAILY [facility] Last Admin: 10/21/18 10:34 Dose: 5 mg Methylprednisolone Sodium Succinate (Solu-Medrol) 125 mg IVPUSH Q8H [facility] Risperidone (Risperidal) 0.5 mg PO BEDTIME [facility] Last Admin: 10/21/18 20:16 Dose: 0.5 mg Risperidone (Risperidal) 0.25 mg PO DAILY [facility] Last Admin: 10/21/18 10:29 Dose: 0.25 mg Tiotropium [place] (Spiriva Handihaler) 18 mcg INH DAILY [facility] Last Admin: 10/21/18 10:34 Dose: 1 cap Discontinued Medications Albuterol/Ipratropium (Duoneb 3.0-0.5 Mg/3 Ml) 3 ml NEB Q6H PRN PRN Reason: Shortness of Breath Last Admin: 10/22/18 02:29 Dose: 3 ml Enoxaparin Sodium (Lovenox) 40 mg SUBCUT DAILY [facility] Last Admin: 10/20/18 18:22 Dose: 40 mg Furosemide (Lasix) 20 mg IVPUSH NOW ONE Stop: 10/22/18 02:56 Last Admin: 10/22/18 03:24 Dose: 20 mg Sodium Chloride (Normal Saline) 1,000 mls @ 500 drops/hr IV .BOLUS ONE Stop: 10/21/18 21:40 Last Admin: 10/20/18 16:03 Dose: 500 drops/hr Ceftriaxone Sodium 1 gm/ (Sodium Chloride) 50 mls @ 200 mls/hr IV Q24H [facility] Last Admin: 10/20/18 18:22 Dose: 200 mls/hr Sodium Chloride (Normal Saline) 1,000 mls @ 125 mls/hr IV ASDIRECTED [facility] Last Infusion: 10/21/18 09:15 Dose: 50 mls/hr Morphine Sulfate (Morphine) 2 mg IVPUSH ONETIME ONE Stop: 10/22/18 02:54 Last Admin: 10/22/18 03:29 Dose: 2 mg Prednisone (Prednisone) 60 mg PO DAILY [facility] Last Admin: 10/21/18 18:11 Dose: 60 mg - Exam General: Alert, Oriented, Cooperative Lungs: Normal Respiratory Effort, Decreased Breath Sounds Cardiovascular: Regular Rate, Regular Rhythm, No Murmurs Extremities: No Pedal Edema Psy/Mental Status: Alert, Normal Affect - Problem List & Annotations (1) COPD exacerbation SNOMED Code(s): 979962776 Code(s): J44.1 - CHRONIC OBSTRUCTIVE PULMONARY DISEASE W (ACUTE) EXACERBATION Status: Acute Current Visit: Yes (2) Hyponatremia SNOMED Code(s): 37113877 Code(s): E87.1 - HYPO-OSMOLALITY AND HYPONATREMIA Status: Acute Current Visit: Yes (3) Palliative care status SNOMED Code(s): 224298056 Code(s): Z51.5 - ENCOUNTER FOR PALLIATIVE CARE Status: Acute Current Visit: Yes (4) On home oxygen therapy SNOMED Code(s): 376580998446 Code(s): Z99.81 - DEPENDENCE ON SUPPLEMENTAL OXYGEN Status: Acute Current Visit: Yes (5) RLL pneumonia SNOMED Code(s): 757440309 Code(s): J18.1 - LOBAR PNEUMONIA, UNSPECIFIED ORGANISM Status: Acute Current Visit: Yes - Problem List Review Problem List Initiated/Reviewed/Updated: Yes - My Orders Last 24 Hours: My Active Orders 10/21/18 08:11 Consult to Occupational Therapy [OT Evaluation and Treatment] [CONS] Routine Consult to Physical Therapy [PT Evaluation and Treatment] [CONS] Routine CULTURE SPUTUM + SMEAR [RM] Routine SCD [Sequential Compression Device] [OM.PC] Routine 10/21/18 08:17 Urinary Catheter Assessment [RC] QSHIFT 10/21/18 09:00 Tiotropium [Spiriva HandiHaler] 18 mcg INH DAILY 10/21/18 13:33 Sodium Chloride 0.9% [Normal Saline] 1,000 ml IV ASDIRECTED 10/21/18 17:20 LORazepam [Ativan] 0.5 mg PO Q6H PRN 10/22/18 07:56 CXR [Chest 2V] [CR] Routine 10/22/18 07:58 ABG [BLOOD GAS ARTERIAL] [BG] Routine 10/22/18 08:00 methylPREDNISolone Sod Succ [Solu-MEDROL] 125 mg IVPUSH Q8H 10/22/18 09:00 Albuterol/Ipratropium [DuoNeb 3.0-0.5 MG/3 ML] 3 ml NEB QID - Plan Plan:: 1. Stop prednisone and start Solu-Medrol 125 mg IV every 8 hours. 2. ABGs 3. Chest x-ray two-view and the patient go down with wheelchair. 4. Change the nebulizers to 4 times a day and every 4 hours when necessary. 5. The patient does not improve or if the blood gases are very poor I will consider BiPAP.
[2018-10-22] MEDS: Docusate Sodium 100 MG Cap PO SCH (08:56)
[2018-10-22] MEDS: Losartan 50 MG Tab PO SCH (08:56)
[2018-10-22] MEDS: Diltiazem 240 MG Cap.ER PO SCH (08:57)
[2018-10-22] MEDS: Methimazole 5 MG Tab PO SCH (08:58)
[2018-10-22] MEDS: Tiotropium Inhaler 18 MCG Inhalation Powder Cap Kit of 5 INH SCH (09:00)
[2018-10-22] MEDS: risperiDONE 0.25 MG Tab PO SCH (09:00)
[2018-10-22] MEDS: methylPREDNISolone Sodium Succinate 125 MG/2 ML SDV IVPUSH SCH ×3 (09:28→23:57)
[2018-10-22] MEDS: Albuterol/Ipratropium 3.0-0.5 MG/3 ML Neb Soln NEB SCH ×4 (10:38→21:12)
--- NOTE | 2018-10-22 10:41 | CR ---
INDICATION: Dyspnea with elevated white count. CHEST: PA and two lateral views of the chest were obtained 10/22/18 and compared with 10/20/18 and 01/05/12. The heart is enlarged. Calcifications are noted in the arch of the aorta. Findings compatible with COPD are noted. Blunting of the costophrenic angles and posterior sulci is noted, which may be partly on the basis of COPD and partly on the basis of fibrosis, although minimal pneumonia and pleuritis cannot be excluded with slightly heavy markings at the lung bases, especially in the area of the left lower lobe. Flattened diaphragm leaves, prominent AP diameter, and hyperaeration are all compatible with COPD. A moderate to moderately severe dextroconcave rotoscoliosis of the thoracolumbar spine is noted. Diminished bone density is noted, compatible with osteoporosis. IMPRESSION: 1. Findings suggest the possibility of minimal pneumonia and pleuritis, especially at the left lung base and possibly minimally at the right lung base - particularly left lower lobe. 2. COPD. 3. ASHD with cardiomegaly. 4. Osteoporosis, scoliosis, stable lower thoracic compressions. MTDD
[2018-10-22] MEDS: Sodium Chloride 0.9% 1,000 ML IV SCH (12:33)
[2018-10-22] MEDS: Azithromycin 500 MG in Sodium Chloride 0.9% 250 ML IV SCH (17:04)
[2018-10-22] MEDS: Enoxaparin 40 MG/0.4 ML Syringe SUBCUT SCH (18:31)
[2018-10-22] MEDS: cefTRIAXone 1 GM Vial IV SCH (18:41)
[2018-10-22] MEDS: risperiDONE 0.5 MG Tab PO SCH (21:12)
[2018-10-23] MEDS: Albuterol/Ipratropium 3.0-0.5 MG/3 ML Neb Soln NEB SCH ×4 (06:05→20:54)
--- NOTE | 2018-10-23 08:35 | PCM.PN ---
- General Info Date of Service: 10/23/18 Admission Dx/Problem (Free Text): Patient is on BiPAP. She feels more comfortable and according to the nurses slept well last night. No fevers, chills, chest pain, abdominal pain. Patient has not had a BM since she's been here. - Patient Data Vitals - Most Recent: Last Vital Signs Temp 96.8 F 10/23/18 01:00 Pulse 77 10/23/18 02:00 Resp 19 10/23/18 05:00 BP 118/62 10/23/18 05:00 Pulse Ox 93 L 10/23/18 05:00 Weight - Most Recent: 101 lb 12.8 oz I&O - Last 24 Hours: Intake & Output 10/22/18 10/23/18 10/23/18 22:59 06:59 14:59 Intake Total 615 500 Output Total 250 150 Balance 365 350 Lab Results Last 24 Hours: Laboratory Results - last 24 hr 10/22/18 10/22/18 10/22/18 Range/Units 08:20 19:00 21:38 WBC (4.5-12.0) X10-3/uL RBC (3.23-5.20) x10(6)uL Hgb (11.5-15.5) g/dL Hct (30.0-51.3) % MCV (80-96) fL MCH (27.7-33.6) pg MCHC (32.2-35.4) g/dL RDW (11.5-15.5) % Plt Count (125-369) X10(3)uL MPV (7.4-10.4) fL Add Manual Diff Neutrophils % (Manual) (46-82) % Lymphocytes % (Manual) (13-37) % Monocytes % (Manual) (4-12) % ABG pH 7.31 L 7.30 L 7.29 L (7.35-7.45) ABG pCO2 67 H* 73 H* 78 H* (35-45) mmHg ABG pO2 57 L 126 H 71 L (83-108) mmHg ABG HCO3 33 H 35 H 36 H (22-26) mmol/L ABG O2 Saturation 85 L 98 H 91 L (96-97) % ABG Base Excess 4.9 H 5.8 H 7.1 H (-2-2) Jason Test Passed Passed Passed O2 Delivery Device Nasal cannula Nasal cannula Nasal cannula Oxygen Flow Rate 2 2 L Sodium (135-145) mmol/L Potassium (3.5-5.3) mmol/L Chloride (100-110) mmol/L Carbon Dioxide (21-32) mmol/L BUN (7-18) mg/dL Creatinine (0.55-1.02) mg/dL Est Cr Clr Drug Dosing mL/min Estimated GFR (MDRD) (>60) BUN/Creatinine Ratio (9-20) Glucose (80-116) mg/dL Calcium (8.6-10.2) mg/dL 10/23/18 10/23/18 10/23/18 Range/Units 06:25 06:25 08:15 WBC 12.2 H (4.5-12.0) X10-3/uL RBC 3.80 (3.23-5.20) x10(6)uL Hgb 12.0 (11.5-15.5) g/dL Hct 36.2 (30.0-51.3) % MCV 95.4 (80-96) fL MCH 31.7 (27.7-33.6) pg MCHC 33.2 (32.2-35.4) g/dL RDW 14.3 (11.5-15.5) % Plt Count 251 (125-369) X10(3)uL MPV 7.3 L (7.4-10.4) fL Add Manual Diff Yes Neutrophils % (Manual) 92 H (46-82) % Lymphocytes % (Manual) 4 L (13-37) % Monocytes % (Manual) 4 (4-12) % ABG pH 7.45 (7.35-7.45) ABG pCO2 51 H (35-45) mmHg ABG pO2 59 L (83-108) mmHg ABG HCO3 35 H (22-26) mmol/L ABG O2 Saturation 91 L (96-97) % ABG Base Excess 9.4 H (-2-2) Jason Test Passed O2 Delivery Device Oxygen Flow Rate 25 L Sodium 129 L (135-145) mmol/L Potassium 4.7 (3.5-5.3) mmol/L Chloride 92 L (100-110) mmol/L Carbon Dioxide 36 H (21-32) mmol/L BUN 21 H (7-18) mg/dL Creatinine 0.4 L (0.55-1.02) mg/dL Est Cr Clr Drug Dosing 85.94 mL/min Estimated GFR (MDRD) > 60 (>60) BUN/Creatinine Ratio 52.5 H (9-20) Glucose 219 H (80-116) mg/dL Calcium 9.2 (8.6-10.2) mg/dL Cameron Results Last 24 Hours: Microbiology 10/20/18 17:01 Aerobic Blood Culture - Preliminary Blood - Venous - Lab Draw NO GROWTH AFTER 2 DAYS Anaerobic Blood Culture - Preliminary NO GROWTH AFTER 2 DAYS 10/20/18 16:55 Aerobic Blood Culture - Preliminary Blood - Venous NO GROWTH AFTER 2 DAYS Anaerobic Blood Culture - Preliminary NO GROWTH AFTER 2 DAYS 10/20/18 16:54 Urine Culture - Final Urine, Catheterized MIXED POSITIVE PEREZ DAY 2 Med Orders - Current: Current Medications Albuterol/Ipratropium (Duoneb 3.0-0.5 Mg/3 Ml) 3 ml NEB QIDRT [facility] Last Admin: 10/23/18 06:05 Dose: 3 ml Ceftriaxone Sodium (Rocephin) 1 gm IV Q24H [facility] Last Admin: 10/22/18 18:41 Dose: 1 gm Diltiazem HCl (Dilacor Xr) 240 mg PO DAILY [facility] Last Admin: 10/22/18 08:57 Dose: 240 mg Docusate Sodium (Colace) 100 mg PO DAILY [facility] Last Admin: 10/22/18 08:56 Dose: 100 mg Enoxaparin Sodium (Lovenox) 40 mg SUBCUT DAILY@1800 [facility] Last Admin: 10/22/18 18:31 Dose: 40 mg Azithromycin 500 mg/ Sodium (Chloride) 250 mls @ 250 mls/hr IV Q24H [facility] Last Admin: 10/22/18 17:04 Dose: 250 mls/hr Sodium Chloride (Normal Saline) 1,000 mls @ 100 mls/hr IV ASDIRECTED [facility] Last Admin: 10/22/18 12:33 Dose: 50 mls/hr Lorazepam (Ativan) 0.5 mg PO Q6H PRN PRN Reason: Anxiety Last Admin: 10/22/18 02:45 Dose: 0.5 mg Losartan Potassium (Cozaar) 50 mg PO DAILY [facility] Last Admin: 10/22/18 08:56 Dose: 50 mg Magnesium Hydroxide (Milk Of Magnesia) 30 ml PO BID PRN PRN Reason: Constipation Methimazole (Methimazole) 5 mg PO DAILY [facility] Last Admin: 10/22/18 08:58 Dose: 5 mg Methylprednisolone Sodium Succinate (Solu-Medrol) 125 mg IVPUSH Q8H [facility] Last Admin: 10/22/18 23:57 Dose: 125 mg Risperidone (Risperidal) 0.5 mg PO BEDTIME [facility] Last Admin: 10/22/18 21:12 Dose: 0.5 mg Risperidone (Risperidal) 0.25 mg PO DAILY [facility] Last Admin: 10/22/18 09:00 Dose: 0.25 mg Sodium Chloride (Saline Flush) 10 ml FLUSH ASDIRECTED PRN PRN Reason: flush Tiotropium [place] (Spiriva Handihaler) 18 mcg INH DAILY [facility] Last Admin: 10/22/18 09:00 Dose: 1 cap Discontinued Medications Albuterol/Ipratropium (Duoneb 3.0-0.5 Mg/3 Ml) 3 ml NEB Q6H PRN PRN Reason: Shortness of Breath Last Admin: 10/22/18 02:29 Dose: 3 ml Enoxaparin Sodium (Lovenox) 40 mg SUBCUT DAILY [facility] Last Admin: 10/20/18 18:22 Dose: 40 mg Furosemide (Lasix) 20 mg IVPUSH NOW ONE Stop: 10/22/18 02:56 Last Admin: 10/22/18 03:24 Dose: 20 mg Sodium Chloride (Normal Saline) 1,000 mls @ 500 drops/hr IV .BOLUS ONE Stop: 10/21/18 21:40 Last Admin: 10/20/18 16:03 Dose: 500 drops/hr Ceftriaxone Sodium 1 gm/ (Sodium Chloride) 50 mls @ 200 mls/hr IV Q24H [facility] Last Admin: 10/20/18 18:22 Dose: 200 mls/hr Sodium Chloride (Normal Saline) 1,000 mls @ 125 mls/hr IV ASDIRECTED [facility] Last Infusion: 10/21/18 09:15 Dose: 50 mls/hr Morphine Sulfate (Morphine) 2 mg IVPUSH ONETIME ONE Stop: 10/22/18 02:54 Last Admin: 10/22/18 03:29 Dose: 2 mg Prednisone (Prednisone) 60 mg PO DAILY [facility] Last Admin: 10/21/18 18:11 Dose: 60 mg - Exam General: Alert, Oriented, Cooperative Neck: Supple Lungs: Normal Respiratory Effort, Decreased Breath Sounds Extremities: No Pedal Edema - Problem List & Annotations (1) COPD exacerbation SNOMED Code(s): 182568336 Code(s): J44.1 - CHRONIC OBSTRUCTIVE PULMONARY DISEASE W (ACUTE) EXACERBATION Status: Acute Current Visit: Yes (2) Hyponatremia SNOMED Code(s): 95968533 Code(s): E87.1 - HYPO-OSMOLALITY AND HYPONATREMIA Status: Acute Current Visit: Yes (3) Palliative care status SNOMED Code(s): 621106513 Code(s): Z51.5 - ENCOUNTER FOR PALLIATIVE CARE Status: Acute Current Visit: Yes (4) On home oxygen therapy SNOMED Code(s): 834829430383 Code(s): Z99.81 - DEPENDENCE ON SUPPLEMENTAL OXYGEN Status: Acute Current Visit: Yes (5) RLL pneumonia SNOMED Code(s): 833871100 Code(s): J18.1 - LOBAR PNEUMONIA, UNSPECIFIED ORGANISM Status: Acute Current Visit: Yes - Problem List Review Problem List Initiated/Reviewed/Updated: Yes - My Orders Last 24 Hours: My Active Orders 10/22/18 08:00 Albuterol/Ipratropium [DuoNeb 3.0-0.5 MG/3 ML] 3 ml NEB QIDRT methylPREDNISolone Sod Succ [Solu-MEDROL] 125 mg IVPUSH Q8H 10/22/18 18:43 Sodium Chloride 0.9% [Saline Flush] 10 ml FLUSH ASDIRECTED PRN 10/22/18 22:15 Admission Status [Patient Status] [ADT] Routine BIPAP Adult [RT BiPAP/CPAP] [RC] ASDIRECTED - Plan Plan:: Continue BiPAP ABGs at 4 PM Continue IV antibiotics and IV fluids. Suppositories when necessary for DC [place]
[2018-10-23] MEDS ORDERED: Bisacodyl 10 MG Supp RECTAL PRN (08:36)
[2018-10-23] MEDS: Sodium Chloride 0.9% 1,000 ML IV SCH ×2 (09:40→20:57)
[2018-10-23] MEDS: methylPREDNISolone Sodium Succinate 125 MG/2 ML SDV IVPUSH SCH ×2 (09:44→16:41)
[2018-10-23] MEDS: Losartan 50 MG Tab PO SCH (09:57)
[2018-10-23] MEDS: risperiDONE 0.25 MG Tab PO SCH (09:58)
[2018-10-23] MEDS: Docusate Sodium 100 MG Cap PO SCH (09:59)
[2018-10-23] MEDS: Methimazole 5 MG Tab PO SCH (09:59)
[2018-10-23] MEDS: Diltiazem 240 MG Cap.ER PO SCH (09:59)
[2018-10-23] MEDS: Tiotropium Inhaler 18 MCG Inhalation Powder Cap Kit of 5 INH SCH (10:00)
[2018-10-23] MEDS: Azithromycin 500 MG in Sodium Chloride 0.9% 250 ML IV SCH (17:26)
[2018-10-23] MEDS: Enoxaparin 40 MG/0.4 ML Syringe SUBCUT SCH (18:28)
[2018-10-23] MEDS: cefTRIAXone 1 GM Vial IV SCH (18:49)
[2018-10-23] MEDS: risperiDONE 0.5 MG Tab PO SCH (20:51)
[2018-10-24] MEDS: methylPREDNISolone Sodium Succinate 125 MG/2 ML SDV IVPUSH SCH ×3 (00:16→15:21)
[2018-10-24] MEDS: Albuterol/Ipratropium 3.0-0.5 MG/3 ML Neb Soln NEB SCH ×4 (06:20→21:05)
[2018-10-24] MEDS: Sodium Chloride 0.9% 1,000 ML IV SCH ×2 (07:45→17:57)
[2018-10-24] MEDS: Docusate Sodium 100 MG Cap PO SCH (08:08)
[2018-10-24] MEDS: Diltiazem 240 MG Cap.ER PO SCH (08:09)
[2018-10-24] MEDS: Losartan 50 MG Tab PO SCH (08:09)
[2018-10-24] MEDS: risperiDONE 0.25 MG Tab PO SCH (08:10)
[2018-10-24] MEDS: Tiotropium Inhaler 18 MCG Inhalation Powder Cap Kit of 5 INH SCH (08:10)
[2018-10-24] MEDS: Methimazole 5 MG Tab PO SCH (08:10)
--- NOTE | 2018-10-24 10:01 | PCM.PN ---
- General Info Date of Service: 10/24/18 Subjective Update: Patient reports feeling better today. she is tolerating diet. had small BM yesterday. she denies CP, SOB. she is back on 2 L of Oxygen which is her baseline at home - Review of Systems General: Reports: No Symptoms HEENT: Reports: No Symptoms Pulmonary: Reports: No Symptoms, Shortness of Breath, Cough Cardiovascular: Reports: No Symptoms Gastrointestinal: Reports: No Symptoms, Constipation, Decreased Appetite Genitourinary: Reports: No Symptoms Musculoskeletal: Reports: No Symptoms Skin: Reports: No Symptoms Psychiatric: Reports: No Symptoms - Patient Data Vitals - Most Recent: Last Vital Signs Temp 35.8 C 10/24/18 07:44 Pulse 105 H 10/24/18 07:44 Resp 30 H 10/24/18 07:44 BP 127/59 L 10/24/18 08:09 Pulse Ox 97 10/24/18 07:44 Weight - Most Recent: 49.697 kg I&O - Last 24 Hours: Intake & Output 10/23/18 10/24/18 10/24/18 22:59 06:59 14:59 Intake Total 850 879 Output Total 75 250 Balance 775 629 Lab Results Last 24 Hours: Laboratory Results - last 24 hr 10/23/18 10/24/18 10/24/18 Range/Units 15:38 06:20 06:20 WBC 15.2 H (4.5-12.0) X10-3/uL RBC 3.75 (3.23-5.20) x10(6)uL Hgb 12.1 (11.5-15.5) g/dL Hct 36.3 (30.0-51.3) % MCV 96.8 H (80-96) fL MCH 32.4 (27.7-33.6) pg MCHC 33.5 (32.2-35.4) g/dL RDW 14.7 (11.5-15.5) % Plt Count 239 (125-369) X10(3)uL MPV 7.2 L (7.4-10.4) fL Add Manual Diff Yes Neutrophils % (Manual) 95 H (46-82) % Lymphocytes % (Manual) 4 L (13-37) % Monocytes % (Manual) 1 L (4-12) % ABG pH 7.40 (7.35-7.45) ABG pCO2 56 H (35-45) mmHg ABG pO2 61 L (83-108) mmHg ABG HCO3 34 H (22-26) mmol/L ABG O2 Saturation 86 L (96-97) % ABG Base Excess 7.3 H (-2-2) Jason Test Performed O2 Delivery Device Bipap Sodium 133 L (135-145) mmol/L Potassium 4.4 (3.5-5.3) mmol/L Chloride 95 L (100-110) mmol/L Carbon Dioxide 36 H (21-32) mmol/L BUN 15 (7-18) mg/dL Creatinine 0.4 L (0.55-1.02) mg/dL Est Cr Clr Drug Dosing 85.94 mL/min Estimated GFR (MDRD) > 60 (>60) BUN/Creatinine Ratio 37.5 H (9-20) Glucose 160 H (80-116) mg/dL Calcium 8.8 (8.6-10.2) mg/dL 10/24/18 Range/Units 06:25 WBC (4.5-12.0) X10-3/uL RBC (3.23-5.20) x10(6)uL Hgb (11.5-15.5) g/dL Hct (30.0-51.3) % MCV (80-96) fL MCH (27.7-33.6) pg MCHC (32.2-35.4) g/dL RDW (11.5-15.5) % Plt Count (125-369) X10(3)uL MPV (7.4-10.4) fL Add Manual Diff Neutrophils % (Manual) (46-82) % Lymphocytes % (Manual) (13-37) % Monocytes % (Manual) (4-12) % ABG pH 7.34 L (7.35-7.45) ABG pCO2 68 H* (35-45) mmHg ABG pO2 46 L* (83-108) mmHg ABG HCO3 36 H (22-26) mmol/L ABG O2 Saturation 77 L* (96-97) % ABG Base Excess 7.9 H (-2-2) Jason Test Passed O2 Delivery Device Nasal cannula Sodium (135-145) mmol/L Potassium (3.5-5.3) mmol/L Chloride (100-110) mmol/L Carbon Dioxide (21-32) mmol/L BUN (7-18) mg/dL Creatinine (0.55-1.02) mg/dL Est Cr Clr Drug Dosing mL/min Estimated GFR (MDRD) (>60) BUN/Creatinine Ratio (9-20) Glucose (80-116) mg/dL Calcium (8.6-10.2) mg/dL Cameron Results Last 24 Hours: Microbiology 10/20/18 17:01 Aerobic Blood Culture - Preliminary Blood - Venous - Lab Draw NO GROWTH AFTER 3 DAYS Anaerobic Blood Culture - Preliminary NO GROWTH AFTER 3 DAYS 10/20/18 16:55 Aerobic Blood Culture - Preliminary Blood - Venous NO GROWTH AFTER 3 DAYS Anaerobic Blood Culture - Preliminary NO GROWTH AFTER 3 DAYS Med Orders - Current: Current Medications Albuterol/Ipratropium (Duoneb 3.0-0.5 Mg/3 Ml) 3 ml NEB QIDRT [facility] Last Admin: 10/24/18 06:20 Dose: 3 ml Bisacodyl (Dulcolax) 10 mg RECTAL DAILY PRN PRN Reason: Constipation Ceftriaxone Sodium (Rocephin) 1 gm IV Q24H [facility] Last Admin: 10/23/18 18:49 Dose: 1 gm Diltiazem HCl (Dilacor Xr) 240 mg PO DAILY [facility] Last Admin: 10/24/18 08:09 Dose: 240 mg Docusate Sodium (Colace) 100 mg PO DAILY [facility] Last Admin: 10/24/18 08:08 Dose: 100 mg Enoxaparin Sodium (Lovenox) 40 mg SUBCUT DAILY@1800 [facility] Last Admin: 10/23/18 18:28 Dose: 40 mg Azithromycin 500 mg/ Sodium (Chloride) 250 mls @ 250 mls/hr IV Q24H [facility] Stop: 10/24/18 20:00 Last Admin: 10/23/18 17:26 Dose: 250 mls/hr Sodium Chloride (Normal Saline) 1,000 mls @ 100 mls/hr IV ASDIRECTED [facility] Last Admin: 10/24/18 07:45 Dose: 100 mls/hr Lorazepam (Ativan) 0.5 mg PO Q6H PRN PRN Reason: Anxiety Last Admin: 10/22/18 02:45 Dose: 0.5 mg Losartan Potassium (Cozaar) 50 mg PO DAILY [facility] Last Admin: 10/24/18 08:09 Dose: 50 mg Magnesium Hydroxide (Milk Of Magnesia) 30 ml PO BID PRN PRN Reason: Constipation Methimazole (Methimazole) 5 mg PO DAILY [facility] Last Admin: 10/24/18 08:10 Dose: 5 mg Methylprednisolone Sodium Succinate (Solu-Medrol) 125 mg IVPUSH Q8H [facility] Last Admin: 10/24/18 08:08 Dose: 125 mg Risperidone (Risperidal) 0.5 mg PO BEDTIME [facility] Last Admin: 10/23/18 20:51 Dose: 0.5 mg Risperidone (Risperidal) 0.25 mg PO DAILY [facility] Last Admin: 10/24/18 08:10 Dose: 0.25 mg Sodium Chloride (Saline Flush) 10 ml FLUSH ASDIRECTED PRN PRN Reason: flush Tiotropium [place] (Spiriva Handihaler) 18 mcg INH DAILY [facility] Last Admin: 10/24/18 08:10 Dose: 1 cap Discontinued Medications Albuterol/Ipratropium (Duoneb 3.0-0.5 Mg/3 Ml) 3 ml NEB Q6H PRN PRN Reason: Shortness of Breath Last Admin: 10/22/18 02:29 Dose: 3 ml Enoxaparin Sodium (Lovenox) 40 mg SUBCUT DAILY [facility] Last Admin: 10/20/18 18:22 Dose: 40 mg Furosemide (Lasix) 20 mg IVPUSH NOW ONE Stop: 10/22/18 02:56 Last Admin: 10/22/18 03:24 Dose: 20 mg Sodium Chloride (Normal Saline) 1,000 mls @ 500 drops/hr IV .BOLUS ONE Stop: 10/21/18 21:40 Last Admin: 10/20/18 16:03 Dose: 500 drops/hr Ceftriaxone Sodium 1 gm/ (Sodium Chloride) 50 mls @ 200 mls/hr IV Q24H [facility] Last Admin: 10/20/18 18:22 Dose: 200 mls/hr Sodium Chloride (Normal Saline) 1,000 mls @ 125 mls/hr IV ASDIRECTED [facility] Last Infusion: 10/21/18 09:15 Dose: 50 mls/hr Morphine Sulfate (Morphine) 2 mg IVPUSH ONETIME ONE Stop: 10/22/18 02:54 Last Admin: 03/20/19 03:29 Dose: 2 mg Prednisone (Prednisone) 60 mg PO DAILY [facility] Last Admin: 10/21/18 18:11 Dose: 60 mg - Exam Quality Assessment: Supplemental Oxygen General: Alert, Cooperative, No Acute Distress Neck: Supple Lungs: Decreased Breath Sounds Cardiovascular: Regular Rate, Regular Rhythm GI/Abdominal Exam: Normal Bowel Sounds, Soft, Non-Tender Extremities: Normal Inspection Skin: Warm Psy/Mental Status: Alert, Normal Affect, Normal Mood - Problem List & Annotations (1) COPD exacerbation SNOMED Code(s): 530986041 Code(s): J44.1 - CHRONIC OBSTRUCTIVE PULMONARY DISEASE W (ACUTE) EXACERBATION Status: Acute Current Visit: Yes (2) On home oxygen therapy SNOMED Code(s): 927155791021 Code(s): Z99.81 - DEPENDENCE ON SUPPLEMENTAL OXYGEN Status: Acute Current Visit: Yes (3) RLL pneumonia SNOMED Code(s): 116249854 Code(s): J18.1 - LOBAR PNEUMONIA, UNSPECIFIED ORGANISM Status: Acute Current Visit: Yes - Problem List Review Problem List Initiated/Reviewed/Updated: Yes - Plan Plan:: - Will switch antibiotic to Azithromycin - Continue BiPAP - Check ABGs in the morning - will consider therapy tomorrow
[2018-10-24] MEDS: Azithromycin 500 MG in Sodium Chloride 0.9% 250 ML IV SCH (16:55)
[2018-10-24] MEDS: cefTRIAXone 1 GM Vial IV SCH (17:58)
[2018-10-24] MEDS: Enoxaparin 40 MG/0.4 ML Syringe SUBCUT SCH (18:09)
[2018-10-24] MEDS: risperiDONE 0.5 MG Tab PO SCH (21:05)
[2018-10-25] MEDS: methylPREDNISolone Sodium Succinate 125 MG/2 ML SDV IVPUSH SCH ×3 (00:11→15:52)
[2018-10-25] MEDS: Sodium Chloride 0.9% 1,000 ML IV SCH (05:06)
[2018-10-25] MEDS: Albuterol/Ipratropium 3.0-0.5 MG/3 ML Neb Soln NEB SCH ×4 (06:20→20:00)
[2018-10-25] MEDS ORDERED: Furosemide 40 MG/4 ML VIAL IVPUSH ONE (08:30)
[2018-10-25] MEDS: Docusate Sodium 100 MG Cap PO SCH (09:06)
[2018-10-25] MEDS: Losartan 50 MG Tab PO SCH (09:07)
[2018-10-25] MEDS: Methimazole 5 MG Tab PO SCH (09:08)
[2018-10-25] MEDS: risperiDONE 0.25 MG Tab PO SCH (09:08)
[2018-10-25] MEDS: Diltiazem 240 MG Cap.ER PO SCH (09:08)
[2018-10-25] MEDS: Tiotropium Inhaler 18 MCG Inhalation Powder Cap Kit of 5 INH SCH (09:09)
--- NOTE | 2018-10-25 09:43 | PCM.PN ---
- General Info Date of Service: 10/25/18 Subjective Update: Danita still feels short of breath with speech.Also complains of being very week. - Review of Systems HEENT: Reports: No Symptoms Pulmonary: Reports: Shortness of Breath, Cough, Sputum Cardiovascular: Reports: Dyspnea on Exertion, Orthopnea Gastrointestinal: Reports: No Symptoms Genitourinary: Reports: No Symptoms - Patient Data Vitals - Most Recent: Last Vital Signs Temp 97.5 F 10/25/18 07:38 Pulse 95 10/25/18 07:38 Resp 30 H 10/25/18 07:38 BP 133/59 L 10/25/18 09:07 Pulse Ox 95 10/25/18 07:38 Weight - Most Recent: 51.936 kg I&O - Last 24 Hours: Intake & Output 10/24/18 10/25/18 10/25/18 22:59 06:59 14:59 Intake Total 965 1065 244 Output Total 475 Balance 965 590 244 Cameron Results Last 24 Hours: Microbiology 10/20/18 16:55 Aerobic Blood Culture - Preliminary Blood - Venous NO GROWTH AFTER 4 DAYS Anaerobic Blood Culture - Preliminary NO GROWTH AFTER 4 DAYS 10/20/18 17:01 Aerobic Blood Culture - Preliminary Blood - Venous - Lab Draw NO GROWTH AFTER 4 DAYS Anaerobic Blood Culture - Preliminary NO GROWTH AFTER 4 DAYS Med Orders - Current: Current Medications Albuterol/Ipratropium (Duoneb 3.0-0.5 Mg/3 Ml) 3 ml NEB QIDRT [facility] Last Admin: 10/25/18 06:20 Dose: 3 ml Bisacodyl (Dulcolax) 10 mg RECTAL DAILY PRN PRN Reason: Constipation Ceftriaxone Sodium (Rocephin) 1 gm IV Q24H [facility] Last Admin: 10/24/18 17:58 Dose: 1 gm Diltiazem HCl (Dilacor Xr) 240 mg PO DAILY [facility] Last Admin: 10/25/18 09:08 Dose: 240 mg Docusate Sodium (Colace) 100 mg PO DAILY [facility] Last Admin: 10/25/18 09:06 Dose: 100 mg Enoxaparin Sodium (Lovenox) 40 mg SUBCUT DAILY@1800 [facility] Last Admin: 10/24/18 18:09 Dose: 40 mg Lorazepam (Ativan) 0.5 mg PO Q6H PRN PRN Reason: Anxiety Last Admin: 10/22/18 02:45 Dose: 0.5 mg Losartan Potassium (Cozaar) 50 mg PO DAILY [facility] Last Admin: 10/25/18 09:07 Dose: 50 mg Magnesium Hydroxide (Milk Of Magnesia) 30 ml PO BID PRN PRN Reason: Constipation Methimazole (Methimazole) 5 mg PO DAILY [facility] Last Admin: 10/25/18 09:08 Dose: 5 mg Methylprednisolone Sodium Succinate (Solu-Medrol) 125 mg IVPUSH Q8H [facility] Last Admin: 10/25/18 08:55 Dose: 125 mg Risperidone (Risperidal) 0.5 mg PO BEDTIME [facility] Last Admin: 10/24/18 21:05 Dose: 0.5 mg Risperidone (Risperidal) 0.25 mg PO DAILY [facility] Last Admin: 10/25/18 09:08 Dose: 0.25 mg Sodium Chloride (Saline Flush) 10 ml FLUSH ASDIRECTED PRN PRN Reason: flush Tiotropium [place] (Spiriva Handihaler) 18 mcg INH DAILY [facility] Last Admin: 10/25/18 09:09 Dose: 1 cap Discontinued Medications Albuterol/Ipratropium (Duoneb 3.0-0.5 Mg/3 Ml) 3 ml NEB Q6H PRN PRN Reason: Shortness of Breath Last Admin: 10/22/18 02:29 Dose: 3 ml Enoxaparin Sodium (Lovenox) 40 mg SUBCUT DAILY [facility] Last Admin: 10/20/18 18:22 Dose: 40 mg Furosemide (Lasix) 20 mg IVPUSH NOW ONE Stop: 10/22/18 02:56 Last Admin: 10/22/18 03:24 Dose: 20 mg Furosemide (Lasix) 40 mg IVPUSH NOW ONE Stop: 10/25/18 08:31 Last Admin: 10/25/18 09:05 Dose: 40 mg Sodium Chloride (Normal Saline) 1,000 mls @ 500 drops/hr IV .BOLUS ONE Stop: 10/21/18 21:40 Last Admin: 10/20/18 16:03 Dose: 500 drops/hr Azithromycin 500 mg/ Sodium (Chloride) 250 mls @ 250 mls/hr IV Q24H [facility] Stop: 10/24/18 20:00 Last Admin: 10/24/18 16:55 Dose: 250 mls/hr Ceftriaxone Sodium 1 gm/ (Sodium Chloride) 50 mls @ 200 mls/hr IV Q24H [facility] Last Admin: 10/20/18 18:22 Dose: 200 mls/hr Sodium Chloride (Normal Saline) 1,000 mls @ 125 mls/hr IV ASDIRECTED [facility] Last Infusion: 10/21/18 09:15 Dose: 50 mls/hr Sodium Chloride (Normal Saline) 1,000 mls @ 100 mls/hr IV ASDIRECTED [facility] Last Admin: 10/25/18 05:06 Dose: 100 mls/hr Morphine Sulfate (Morphine) 2 mg IVPUSH ONETIME ONE Stop: 10/22/18 02:54 Last Admin: 10/22/18 03:29 Dose: 2 mg Prednisone (Prednisone) 60 mg PO DAILY [facility] Last Admin: 10/21/18 18:11 Dose: 60 mg - Exam Quality Assessment: Supplemental Oxygen General: Alert, Oriented, Mild Distress HEENT: Pupils Equal Neck: Supple Lungs: Crackles, Rales Cardiovascular: Regular Rate GI/Abdominal Exam: Normal Bowel Sounds - Problem List & Annotations (1) RLL pneumonia SNOMED Code(s): 181045316 Code(s): J18.1 - LOBAR PNEUMONIA, UNSPECIFIED ORGANISM Status: Acute Current Visit: Yes (2) Weakness acquired in ICU SNOMED Code(s): 17990942 Code(s): R53.1 - WEAKNESS Status: Acute Current Visit: Yes (3) COPD exacerbation SNOMED Code(s): 232203235 Code(s): J44.1 - CHRONIC OBSTRUCTIVE PULMONARY DISEASE W (ACUTE) EXACERBATION Status: Acute Current Visit: Yes (4) Hyponatremia SNOMED Code(s): 46686106 Code(s): E87.1 - HYPO-OSMOLALITY AND HYPONATREMIA Status: Acute Current Visit: Yes (5) Palliative care status SNOMED Code(s): 625964374 Code(s): Z51.5 - ENCOUNTER FOR PALLIATIVE CARE Status: Acute Current Visit: Yes - Problem List Review Problem List Initiated/Reviewed/Updated: Yes - My Orders Last 24 Hours: My Active Orders 10/25/18 09:25 CXR [Chest 2V] [CR] Routine 10/26/18 05:11 BASIC METABOLIC PANEL,BMP [CHEM] AM CBC WITH AUTO DIFF [HEME] AM 10/26/18 08:45 PRO B-TYPE NATRIUR PEPT,BNPPRO [CHEM] DAILY - Plan Plan:: Obtain CXR today. DC IVF,give one time Lasix IV for diuresis. Continue Rocephin, Azithromycin. Repeat Labs.
[2018-10-25] MEDS: Enoxaparin 40 MG/0.4 ML Syringe SUBCUT SCH (17:48)
[2018-10-25] MEDS: cefTRIAXone 1 GM Vial IV SCH (17:48)
[2018-10-25] MEDS: Sodium Chloride 0.9% 10 ML Syringe FLUSH PRN (17:53)
[2018-10-25] MEDS: risperiDONE 0.5 MG Tab PO SCH (20:05)
[2018-10-26] MEDS: methylPREDNISolone Sodium Succinate 125 MG/2 ML SDV IVPUSH SCH (00:02)
[2018-10-26] MEDS: Sodium Chloride 0.9% 10 ML Syringe FLUSH PRN (00:03)
[2018-10-26] MEDS: Albuterol/Ipratropium 3.0-0.5 MG/3 ML Neb Soln NEB SCH ×4 (06:14→21:39)
--- NOTE | 2018-10-26 07:42 | PCM.PN ---
- General Info Date of Service: 10/26/18 Subjective Update: Danita still feels short of breath with speech.Also complains of being very week.Cough - Review of Systems General: Reports: Weakness HEENT: Reports: No Symptoms Pulmonary: Reports: Shortness of Breath Gastrointestinal: Reports: No Symptoms Genitourinary: Reports: No Symptoms - Patient Data Vitals - Most Recent: Last Vital Signs Temp 97.7 F 10/26/18 04:00 Pulse 90 10/26/18 04:00 Resp 19 10/26/18 04:00 BP 143/65 H 10/26/18 04:00 Pulse Ox 96 10/26/18 04:00 Weight - Most Recent: 52.208 kg I&O - Last 24 Hours: Intake & Output 10/25/18 10/26/18 10/26/18 22:59 06:59 14:59 Intake Total 150 125 Output Total 225 300 Balance -75 -175 Lab Results Last 24 Hours: Laboratory Results - last 24 hr 10/26/18 10/26/18 10/26/18 Range/Units 06:15 06:15 06:15 WBC 20.2 H (4.5-12.0) X10-3/uL RBC 3.72 (3.23-5.20) x10(6)uL Hgb 11.7 (11.5-15.5) g/dL Hct 35.9 (30.0-51.3) % MCV 96.5 H (80-96) fL MCH 31.3 (27.7-33.6) pg MCHC 32.5 (32.2-35.4) g/dL RDW 14.3 (11.5-15.5) % Plt Count 249 (125-369) X10(3)uL MPV 7.4 (7.4-10.4) fL Add Manual Diff Yes Neutrophils % (Manual) 96 H (46-82) % Band Neutrophils % 1 (0-6) % Lymphocytes % (Manual) 1 L (13-37) % Monocytes % (Manual) 1 L (4-12) % Metamyelocytes % 1 H (0-0) % Sodium 137 (135-145) mmol/L Potassium 4.7 (3.5-5.3) mmol/L Chloride 98 L (100-110) mmol/L Carbon Dioxide 43 H* (21-32) mmol/L BUN 18 (7-18) mg/dL Creatinine 0.4 L (0.55-1.02) mg/dL Est Cr Clr Drug Dosing 85.94 mL/min Estimated GFR (MDRD) > 60 (>60) BUN/Creatinine Ratio 45.0 H (9-20) Glucose 156 H (80-116) mg/dL Calcium 9.1 (8.6-10.2) mg/dL NT-Pro-B Natriuret Pep 19051 H* (<=450) pg/mL Cameron Results Last 24 Hours: Microbiology 10/20/18 16:55 Aerobic Blood Culture - Final Blood - Venous NO GROWTH AFTER 5 DAYS Anaerobic Blood Culture - Final NO GROWTH AFTER 5 DAYS 10/20/18 17:01 Aerobic Blood Culture - Final Blood - Venous - Lab Draw NO GROWTH AFTER 5 DAYS Anaerobic Blood Culture - Final NO GROWTH AFTER 5 DAYS Med Orders - Current: Current Medications Albuterol/Ipratropium (Duoneb 3.0-0.5 Mg/3 Ml) 3 ml NEB QIDRT [facility] Last Admin: 10/26/18 06:14 Dose: 3 ml Bisacodyl (Dulcolax) 10 mg RECTAL DAILY PRN PRN Reason: Constipation Ceftriaxone Sodium (Rocephin) 1 gm IV Q24H [facility] Last Admin: 10/25/18 17:48 Dose: 1 gm Diltiazem HCl (Dilacor Xr) 240 mg PO DAILY [facility] Last Admin: 10/25/18 09:08 Dose: 240 mg Docusate Sodium (Colace) 100 mg PO DAILY [facility] Last Admin: 10/25/18 09:06 Dose: 100 mg Enoxaparin Sodium (Lovenox) 40 mg SUBCUT DAILY@1800 [facility] Last Admin: 10/25/18 17:48 Dose: 40 mg Furosemide (Lasix) 20 mg PO BID [facility] Lorazepam (Ativan) 0.5 mg PO Q6H PRN PRN Reason: Anxiety Last Admin: 10/22/18 02:45 Dose: 0.5 mg Losartan Potassium (Cozaar) 50 mg PO DAILY [facility] Last Admin: 10/25/18 09:07 Dose: 50 mg Magnesium Hydroxide (Milk Of Magnesia) 30 ml PO BID PRN PRN Reason: Constipation Methimazole (Methimazole) 5 mg PO DAILY [facility] Last Admin: 10/25/18 09:08 Dose: 5 mg Mometasone Furoate/Formoterol Fumar (Dulera 200-5 Mcg) 2 puff IH BIDRT [facility] Prednisone (Prednisone) 20 mg PO BID [facility] Risperidone (Risperidal) 0.5 mg PO BEDTIME [facility] Last Admin: 10/25/18 20:05 Dose: 0.5 mg Risperidone (Risperidal) 0.25 mg PO DAILY [facility] Last Admin: 10/25/18 09:08 Dose: 0.25 mg Sodium Chloride (Saline Flush) 10 ml FLUSH ASDIRECTED PRN PRN Reason: flush Last Admin: 10/26/18 00:03 Dose: 10 ml Tiotropium [place] (Spiriva Handihaler) 18 mcg INH DAILY [facility] Last Admin: 10/25/18 09:09 Dose: 1 cap Discontinued Medications Albuterol/Ipratropium (Duoneb 3.0-0.5 Mg/3 Ml) 3 ml NEB Q6H PRN PRN Reason: Shortness of Breath Last Admin: 10/22/18 02:29 Dose: 3 ml Enoxaparin Sodium (Lovenox) 40 mg SUBCUT DAILY [facility] Last Admin: 10/20/18 18:22 Dose: 40 mg Furosemide (Lasix) 20 mg IVPUSH NOW ONE Stop: 10/22/18 02:56 Last Admin: 10/22/18 03:24 Dose: 20 mg Furosemide (Lasix) 40 mg IVPUSH NOW ONE Stop: 10/25/18 08:31 Last Admin: 10/25/18 09:05 Dose: 40 mg Sodium Chloride (Normal Saline) 1,000 mls @ 500 drops/hr IV .BOLUS ONE Stop: 10/21/18 21:40 Last Admin: 10/20/18 16:03 Dose: 500 drops/hr Azithromycin 500 mg/ Sodium (Chloride) 250 mls @ 250 mls/hr IV Q24H [facility] Stop: 10/24/18 20:00 Last Admin: 10/24/18 16:55 Dose: 250 mls/hr Ceftriaxone Sodium 1 gm/ (Sodium Chloride) 50 mls @ 200 mls/hr IV Q24H [facility] Last Admin: 10/20/18 18:22 Dose: 200 mls/hr Sodium Chloride (Normal Saline) 1,000 mls @ 125 mls/hr IV ASDIRECTED [facility] Last Infusion: 10/21/18 09:15 Dose: 50 mls/hr Sodium Chloride (Normal Saline) 1,000 mls @ 100 mls/hr IV ASDIRECTED [facility] Last Admin: 10/25/18 05:06 Dose: 100 mls/hr Methylprednisolone Sodium Succinate (Solu-Medrol) 125 mg IVPUSH Q8H [facility] Last Admin: 10/26/18 00:02 Dose: 125 mg Morphine Sulfate (Morphine) 2 mg IVPUSH ONETIME ONE Stop: 10/22/18 02:54 Last Admin: 10/22/18 03:29 Dose: 2 mg Prednisone (Prednisone) 60 mg PO DAILY [facility] Last Admin: 10/21/18 18:11 Dose: 60 mg - Exam Quality Assessment: Supplemental Oxygen General: Alert, Oriented, Cooperative Neck: Supple Lungs: Clear to Auscultation, Decreased Breath Sounds Cardiovascular: Regular Rate GI/Abdominal Exam: Normal Bowel Sounds - Problem List & Annotations (1) RLL pneumonia SNOMED Code(s): 264291564 Code(s): J18.1 - LOBAR PNEUMONIA, UNSPECIFIED ORGANISM Status: Acute Current Visit: Yes (2) Weakness acquired in ICU SNOMED Code(s): 26626338 Code(s): R53.1 - WEAKNESS Status: Acute Current Visit: Yes (3) COPD exacerbation SNOMED Code(s): 913839206 Code(s): J44.1 - CHRONIC OBSTRUCTIVE PULMONARY DISEASE W (ACUTE) EXACERBATION Status: Acute Current Visit: Yes (4) Hyponatremia SNOMED Code(s): 30517791 Code(s): E87.1 - HYPO-OSMOLALITY AND HYPONATREMIA Status: Acute Current Visit: Yes (5) Palliative care status SNOMED Code(s): 392674892 Code(s): Z51.5 - ENCOUNTER FOR PALLIATIVE CARE Status: Acute Current Visit: Yes - Problem List Review Problem List Initiated/Reviewed/Updated: Yes - My Orders Last 24 Hours: My Active Orders 10/25/18 09:25 CXR [Chest 2V] [CR] Routine 10/26/18 07:38 Incentive Spirometry [RT Incentive Spirometry] [RC] Q4HWA 10/26/18 09:00 Furosemide [Lasix] 20 mg PO BID predniSONE 20 mg PO BID 10/26/18 21:00 Mometasone/Formoterol [Dulera 200-5 MCG] 2 puff IH BIDRT 10/27/18 05:11 CBC WITH AUTO DIFF [HEME] AM COMPREHENSIVE METABOLIC PN,CMP [CHEM] AM - Plan Plan:: Not much change in the x-ray. Her white cell count has also gone up- I suspect due to the steroids. I feel she is stable enough to go to a medical bed and will switch steroids to oral and start Lasix 20 mg twice a day(her BNP is up) .Mobilise patient,and start Dulera,and IS
[2018-10-26] MEDS: Losartan 50 MG Tab PO SCH (08:13)
[2018-10-26] MEDS: Docusate Sodium 100 MG Cap PO SCH (08:13)
[2018-10-26] MEDS: Diltiazem 240 MG Cap.ER PO SCH (08:16)
[2018-10-26] MEDS: risperiDONE 0.25 MG Tab PO SCH (08:16)
[2018-10-26] MEDS: Methimazole 5 MG Tab PO SCH (08:16)
[2018-10-26] MEDS: Furosemide 20 MG Tab PO SCH ×2 (08:23→14:28)
[2018-10-26] MEDS: predniSONE 20 MG Tab PO SCH ×2 (08:23→21:45)
[2018-10-26] MEDS: Tiotropium Inhaler 18 MCG Inhalation Powder Cap Kit of 5 INH SCH (08:24)
[2018-10-26] MEDS: Enoxaparin 40 MG/0.4 ML Syringe SUBCUT SCH (19:25)
[2018-10-26] MEDS: cefTRIAXone 1 GM Vial IV SCH (19:26)
[2018-10-26] MEDS: risperiDONE 0.5 MG Tab PO SCH (21:40)
[2018-10-26] MEDS: Formoterol/Mometasone 200-5 MCG 8.8 GM Inhaler IH SCH (21:45)
[2018-10-27] MEDS: Albuterol/Ipratropium 3.0-0.5 MG/3 ML Neb Soln NEB SCH ×4 (06:01→21:03)
[2018-10-27] MEDS: Formoterol/Mometasone 200-5 MCG 8.8 GM Inhaler IH SCH ×2 (06:14→21:04)
--- NOTE | 2018-10-27 08:43 | PCM.PN ---
- General Info Date of Service: 10/27/18 Subjective Update: Danita still feels short of breath with speech.Also complains of being very week.Cough - Review of Systems General: Reports: Fatigue HEENT: Reports: No Symptoms Pulmonary: Reports: Shortness of Breath, Cough Cardiovascular: Reports: Dyspnea on Exertion, Edema Gastrointestinal: Reports: No Symptoms Genitourinary: Reports: No Symptoms - Patient Data Vitals - Most Recent: Last Vital Signs Temp 98.2 F 10/27/18 04:55 Pulse 101 H 10/27/18 04:55 Resp 24 H 10/27/18 04:55 BP 153/59 H 10/27/18 04:55 Pulse Ox 89 L 10/27/18 04:55 Weight - Most Recent: 50.984 kg I&O - Last 24 Hours: Intake & Output 10/26/18 10/27/18 10/27/18 22:59 06:59 14:59 Intake Total 150 250 Output Total 650 Balance -500 250 Lab Results Last 24 Hours: Laboratory Results - last 24 hr 10/27/18 10/27/18 Range/Units 06:35 06:35 WBC 21.4 H (4.5-12.0) X10-3/uL RBC 3.57 (3.23-5.20) x10(6)uL Hgb 11.5 (11.5-15.5) g/dL Hct 34.5 (30.0-51.3) % MCV 96.6 H (80-96) fL MCH 32.3 (27.7-33.6) pg MCHC 33.4 (32.2-35.4) g/dL RDW 14.2 (11.5-15.5) % Plt Count 288 (125-369) X10(3)uL MPV 7.2 L (7.4-10.4) fL Add Manual Diff Yes Neutrophils % (Manual) 94 H (46-82) % Lymphocytes % (Manual) 3 L (13-37) % Monocytes % (Manual) 3 L (4-12) % Sodium 138 (135-145) mmol/L Potassium 4.0 (3.5-5.3) mmol/L Chloride 93 L D (100-110) mmol/L Carbon Dioxide 52 H* (21-32) mmol/L BUN 20 H (7-18) mg/dL Creatinine 0.3 L (0.55-1.02) mg/dL Est Cr Clr Drug Dosing 114.59 mL/min Estimated GFR (MDRD) > 60 (>60) BUN/Creatinine Ratio 66.7 H (9-20) Glucose 148 H (80-116) mg/dL Calcium 8.9 (8.6-10.2) mg/dL Total Bilirubin 0.2 (0.1-1.3) mg/dL AST 19 D (5-25) IU/L ALT 33 D (12-36) U/L Alkaline Phosphatase 50 L (56-112) IU/L Total Protein 5.9 L (6.0-8.0) g/dL Albumin 3.0 L (3.2-4.6) g/dL Globulin 2.9 g/dL Albumin/Globulin Ratio 1.0 Med Orders - Current: Current Medications Albuterol/Ipratropium (Duoneb 3.0-0.5 Mg/3 Ml) 3 ml NEB QIDRT [facility] Last Admin: 10/27/18 06:01 Dose: 3 ml Bisacodyl (Dulcolax) 10 mg RECTAL DAILY PRN PRN Reason: Constipation Ceftriaxone Sodium (Rocephin) 1 gm IV Q24H [facility] Last Admin: 10/26/18 19:26 Dose: 1 gm Diltiazem HCl (Dilacor Xr) 240 mg PO DAILY [facility] Last Admin: 10/26/18 08:16 Dose: 240 mg Docusate Sodium (Colace) 100 mg PO DAILY [facility] Last Admin: 10/26/18 08:13 Dose: 100 mg Enoxaparin Sodium (Lovenox) 40 mg SUBCUT DAILY@1800 [facility] Last Admin: 10/26/18 19:25 Dose: 40 mg Furosemide (Lasix) 20 mg PO BIDDIURETIC [facility] Last Admin: 10/26/18 14:28 Dose: 20 mg Lorazepam (Ativan) 0.5 mg PO Q6H PRN PRN Reason: Anxiety Last Admin: 10/22/18 02:45 Dose: 0.5 mg Losartan Potassium (Cozaar) 50 mg PO DAILY [facility] Last Admin: 10/26/18 08:13 Dose: 50 mg Magnesium Hydroxide (Milk Of Magnesia) 30 ml PO BID PRN PRN Reason: Constipation Methimazole (Methimazole) 5 mg PO DAILY [facility] Last Admin: 10/26/18 08:16 Dose: 5 mg Mometasone Furoate/Formoterol Fumar (Dulera 200-5 Mcg) 2 puff IH BIDRT [facility] Last Admin: 10/27/18 06:14 Dose: 2 inhaler Prednisone (Prednisone) 20 mg PO BID [facility] Last Admin: 10/26/18 21:45 Dose: 20 mg Risperidone (Risperidal) 0.5 mg PO BEDTIME [facility] Last Admin: 10/26/18 21:40 Dose: 0.5 mg Risperidone (Risperidal) 0.25 mg PO DAILY [facility] Last Admin: 10/26/18 08:16 Dose: 0.25 mg Sodium Chloride (Saline Flush) 10 ml FLUSH ASDIRECTED PRN PRN Reason: flush Last Admin: 10/26/18 00:03 Dose: 10 ml Tiotropium [place] (Spiriva Handihaler) 18 mcg INH DAILY [facility] Last Admin: 10/26/18 08:24 Dose: 1 cap Discontinued Medications Albuterol/Ipratropium (Duoneb 3.0-0.5 Mg/3 Ml) 3 ml NEB Q6H PRN PRN Reason: Shortness of Breath Last Admin: 10/22/18 02:29 Dose: 3 ml Enoxaparin Sodium (Lovenox) 40 mg SUBCUT DAILY [facility] Last Admin: 10/20/18 18:22 Dose: 40 mg Furosemide (Lasix) 20 mg IVPUSH NOW ONE Stop: 10/22/18 02:56 Last Admin: 10/22/18 03:24 Dose: 20 mg Furosemide (Lasix) 40 mg IVPUSH NOW ONE Stop: 10/25/18 08:31 Last Admin: 10/25/18 09:05 Dose: 40 mg Sodium Chloride (Normal Saline) 1,000 mls @ 500 drops/hr IV .BOLUS ONE Stop: 10/21/18 21:40 Last Admin: 10/20/18 16:03 Dose: 500 drops/hr Azithromycin 500 mg/ Sodium (Chloride) 250 mls @ 250 mls/hr IV Q24H [facility] Stop: 10/24/18 20:00 Last Admin: 10/24/18 16:55 Dose: 250 mls/hr Ceftriaxone Sodium 1 gm/ (Sodium Chloride) 50 mls @ 200 mls/hr IV Q24H [facility] Last Admin: 10/20/18 18:22 Dose: 200 mls/hr Sodium Chloride (Normal Saline) 1,000 mls @ 125 mls/hr IV ASDIRECTED [facility] Last Infusion: 10/21/18 09:15 Dose: 50 mls/hr Sodium Chloride (Normal Saline) 1,000 mls @ 100 mls/hr IV ASDIRECTED [facility] Last Admin: 10/25/18 05:06 Dose: 100 mls/hr Methylprednisolone Sodium Succinate (Solu-Medrol) 125 mg IVPUSH Q8H [facility] Last Admin: 10/26/18 00:02 Dose: 125 mg Morphine Sulfate (Morphine) 2 mg IVPUSH ONETIME ONE Stop: 10/22/18 02:54 Last Admin: 10/22/18 03:29 Dose: 2 mg Prednisone (Prednisone) 60 mg PO DAILY [facility] Last Admin: 10/21/18 18:11 Dose: 60 mg - Exam General: Alert HEENT: Pupils Equal Neck: Supple Lungs: Decreased Breath Sounds, Crackles Cardiovascular: Regular Rate - Problem List & Annotations (1) RLL pneumonia SNOMED Code(s): 355802317 Code(s): J18.1 - LOBAR PNEUMONIA, UNSPECIFIED ORGANISM Status: Acute Current Visit: Yes (2) Weakness acquired in ICU SNOMED Code(s): 29013168 Code(s): R53.1 - WEAKNESS Status: Acute Current Visit: Yes (3) COPD exacerbation SNOMED Code(s): 758893628 Code(s): J44.1 - CHRONIC OBSTRUCTIVE PULMONARY DISEASE W (ACUTE) EXACERBATION Status: Acute Current Visit: Yes (4) Hyponatremia SNOMED Code(s): 53731561 Code(s): E87.1 - HYPO-OSMOLALITY AND HYPONATREMIA Status: Acute Current Visit: Yes (5) Palliative care status SNOMED Code(s): 601653764 Code(s): Z51.5 - ENCOUNTER FOR PALLIATIVE CARE Status: Acute Current Visit: Yes - Problem List Review Problem List Initiated/Reviewed/Updated: Yes - My Orders Last 24 Hours: My Active Orders 10/26/18 08:00 Furosemide [Lasix] 20 mg PO BIDDIURETIC 10/26/18 09:00 predniSONE 20 mg PO BID 10/26/18 21:00 Mometasone/Formoterol [Dulera 200-5 MCG] 2 puff IH BIDRT 10/28/18 05:11 BASIC METABOLIC PANEL,BMP [CHEM] AM PRO B-TYPE NATRIUR PEPT,BNPPRO [CHEM] DAILY 10/28/18 08:40 Echo Comp wo Cont [US] Urgent - Plan Plan:: Obtain ECHO. Continue current Rx. PT to consult,placement discussion with patient,we may try SB or SNF in the next 1 days
[2018-10-27] MEDS: Furosemide 20 MG Tab PO SCH ×2 (08:57→15:12)
[2018-10-27] MEDS: Losartan 50 MG Tab PO SCH (08:58)
[2018-10-27] MEDS: Docusate Sodium 100 MG Cap PO SCH (08:58)
[2018-10-27] MEDS: risperiDONE 0.25 MG Tab PO SCH (08:59)
[2018-10-27] MEDS: Methimazole 5 MG Tab PO SCH (08:59)
[2018-10-27] MEDS: predniSONE 20 MG Tab PO SCH ×2 (08:59→21:03)
[2018-10-27] MEDS: Diltiazem 240 MG Cap.ER PO SCH (08:59)
[2018-10-27] MEDS: Tiotropium Inhaler 18 MCG Inhalation Powder Cap Kit of 5 INH SCH (09:00)
[2018-10-27] MEDS: Enoxaparin 40 MG/0.4 ML Syringe SUBCUT SCH (17:00)
[2018-10-27] MEDS: cefTRIAXone 1 GM Vial IV SCH (17:01)
[2018-10-27] MEDS: Sodium Chloride 0.9% 10 ML Syringe FLUSH PRN (17:01)
[2018-10-27] MEDS: risperiDONE 0.5 MG Tab PO SCH (21:03)
[2018-10-28] MEDS: Formoterol/Mometasone 200-5 MCG 8.8 GM Inhaler IH SCH (06:28)
[2018-10-28] MEDS: Albuterol/Ipratropium 3.0-0.5 MG/3 ML Neb Soln NEB SCH (06:29)
[2018-10-28] MEDS: Furosemide 20 MG Tab PO SCH (08:03)
[2018-10-28] MEDS: Losartan 50 MG Tab PO SCH (08:03)
[2018-10-28] MEDS: Docusate Sodium 100 MG Cap PO SCH (08:03)
[2018-10-28] MEDS: Diltiazem 240 MG Cap.ER PO SCH (08:04)
[2018-10-28] MEDS: Methimazole 5 MG Tab PO SCH (08:04)
[2018-10-28] MEDS: risperiDONE 0.25 MG Tab PO SCH (08:05)
[2018-10-28] MEDS: predniSONE 20 MG Tab PO SCH (08:05)
--- NOTE | 2018-10-28 09:02 | PCM.PN ---
- General Info Date of Service: 10/28/18 Subjective Update: Danita still feels short of breath with speech.Also complains of being very week.Cough Functional Status: Reports: Pain Controlled - Review of Systems General: Reports: No Symptoms HEENT: Reports: No Symptoms Pulmonary: Reports: No Symptoms Cardiovascular: Reports: No Symptoms Gastrointestinal: Reports: No Symptoms - Patient Data Vitals - Most Recent: Last Vital Signs Temp 97.9 F 10/28/18 08:00 Pulse 96 10/28/18 04:00 Resp 24 H 10/28/18 08:00 BP 125/58 L 10/28/18 08:03 Pulse Ox 88 L 10/28/18 08:00 Weight - Most Recent: 50.859 kg I&O - Last 24 Hours: Intake & Output 10/27/18 10/28/18 10/28/18 22:59 06:59 14:59 Intake Total 600 Output Total 900 200 Balance -300 -200 Lab Results Last 24 Hours: Laboratory Results - last 24 hr 10/28/18 10/28/18 Range/Units 06:44 06:44 Sodium 135 (135-145) mmol/L Potassium 3.6 (3.5-5.3) mmol/L Chloride 89 L* (100-110) mmol/L Carbon Dioxide 50 H* (21-32) mmol/L BUN 17 (7-18) mg/dL Creatinine 0.5 L (0.55-1.02) mg/dL Est Cr Clr Drug Dosing 68.75 mL/min Estimated GFR (MDRD) > 60 (>60) BUN/Creatinine Ratio 34.0 H (9-20) Glucose 243 H D (80-116) mg/dL Calcium 8.6 (8.6-10.2) mg/dL NT-Pro-B Natriuret Pep 88209 H* (<=450) pg/mL Med Orders - Current: Current Medications Albuterol/Ipratropium (Duoneb 3.0-0.5 Mg/3 Ml) 3 ml NEB QIDRT [facility] Last Admin: 10/28/18 06:29 Dose: 3 ml Bisacodyl (Dulcolax) 10 mg RECTAL DAILY PRN PRN Reason: Constipation Ceftriaxone Sodium (Rocephin) 1 gm IV Q24H [facility] Last Admin: 10/27/18 17:01 Dose: 1 gm Diltiazem HCl (Dilacor Xr) 240 mg PO DAILY [facility] Last Admin: 10/28/18 08:04 Dose: 240 mg Docusate Sodium (Colace) 100 mg PO DAILY [facility] Last Admin: 10/28/18 08:03 Dose: 100 mg Enoxaparin Sodium (Lovenox) 40 mg SUBCUT DAILY@1800 [facility] Last Admin: 10/27/18 17:00 Dose: 40 mg Furosemide (Lasix) 20 mg PO BIDDIURETIC [facility] Last Admin: 10/28/18 08:03 Dose: 20 mg Lorazepam (Ativan) 0.5 mg PO Q6H PRN PRN Reason: Anxiety Last Admin: 10/22/18 02:45 Dose: 0.5 mg Losartan Potassium (Cozaar) 50 mg PO DAILY [facility] Last Admin: 10/28/18 08:03 Dose: 50 mg Magnesium Hydroxide (Milk Of Magnesia) 30 ml PO BID PRN PRN Reason: Constipation Methimazole (Methimazole) 5 mg PO DAILY [facility] Last Admin: 10/28/18 08:04 Dose: 5 mg Mometasone Furoate/Formoterol Fumar (Dulera 200-5 Mcg) 2 puff IH BIDRT [facility] Last Admin: 10/28/18 06:28 Dose: 2 inhaler Prednisone (Prednisone) 20 mg PO BID [facility] Last Admin: 10/28/18 08:05 Dose: 20 mg Risperidone (Risperidal) 0.5 mg PO BEDTIME [facility] Last Admin: 10/27/18 21:03 Dose: 0.5 mg Risperidone (Risperidal) 0.25 mg PO DAILY [facility] Last Admin: 10/28/18 08:05 Dose: 0.25 mg Sodium Chloride (Saline Flush) 10 ml FLUSH ASDIRECTED PRN PRN Reason: flush Last Admin: 10/27/18 17:01 Dose: 10 ml Tiotropium [place] (Spiriva Handihaler) 18 mcg INH DAILY [facility] Last Admin: 10/27/18 09:00 Dose: 1 cap Discontinued Medications Albuterol/Ipratropium (Duoneb 3.0-0.5 Mg/3 Ml) 3 ml NEB Q6H PRN PRN Reason: Shortness of Breath Last Admin: 10/22/18 02:29 Dose: 3 ml Enoxaparin Sodium (Lovenox) 40 mg SUBCUT DAILY [facility] Last Admin: 10/20/18 18:22 Dose: 40 mg Furosemide (Lasix) 20 mg IVPUSH NOW ONE Stop: 10/22/18 02:56 Last Admin: 10/22/18 03:24 Dose: 20 mg Furosemide (Lasix) 40 mg IVPUSH NOW ONE Stop: 10/25/18 08:31 Last Admin: 10/25/18 09:05 Dose: 40 mg Sodium Chloride (Normal Saline) 1,000 mls @ 500 drops/hr IV .BOLUS ONE Stop: 10/21/18 21:40 Last Admin: 10/20/18 16:03 Dose: 500 drops/hr Azithromycin 500 mg/ Sodium (Chloride) 250 mls @ 250 mls/hr IV Q24H [facility] Stop: 10/24/18 20:00 Last Admin: 10/24/18 16:55 Dose: 250 mls/hr Ceftriaxone Sodium 1 gm/ (Sodium Chloride) 50 mls @ 200 mls/hr IV Q24H [facility] Last Admin: 10/20/18 18:22 Dose: 200 mls/hr Sodium Chloride (Normal Saline) 1,000 mls @ 125 mls/hr IV ASDIRECTED [facility] Last Infusion: 10/21/18 09:15 Dose: 50 mls/hr Sodium Chloride (Normal Saline) 1,000 mls @ 100 mls/hr IV ASDIRECTED [facility] Last Admin: 10/25/18 05:06 Dose: 100 mls/hr Methylprednisolone Sodium Succinate (Solu-Medrol) 125 mg IVPUSH Q8H [facility] Last Admin: 10/26/18 00:02 Dose: 125 mg Morphine Sulfate (Morphine) 2 mg IVPUSH ONETIME ONE Stop: 10/22/18 02:54 Last Admin: 10/22/18 03:29 Dose: 2 mg Prednisone (Prednisone) 60 mg PO DAILY [facility] Last Admin: 10/21/18 18:11 Dose: 60 mg - Exam General: Alert HEENT: Pupils Equal Neck: Supple Lungs: Clear to Auscultation, Decreased Breath Sounds - Problem List & Annotations (1) RLL pneumonia SNOMED Code(s): 282766065 Code(s): J18.1 - LOBAR PNEUMONIA, UNSPECIFIED ORGANISM Status: Acute Current Visit: Yes (2) Weakness acquired in ICU SNOMED Code(s): 73326320 Code(s): R53.1 - WEAKNESS Status: Acute Current Visit: Yes (3) COPD exacerbation SNOMED Code(s): 730052119 Code(s): J44.1 - CHRONIC OBSTRUCTIVE PULMONARY DISEASE W (ACUTE) EXACERBATION Status: Acute Current Visit: Yes (4) Hyponatremia SNOMED Code(s): 33574100 Code(s): E87.1 - HYPO-OSMOLALITY AND HYPONATREMIA Status: Acute Current Visit: Yes (5) Palliative care status SNOMED Code(s): 731108167 Code(s): Z51.5 - ENCOUNTER FOR PALLIATIVE CARE Status: Acute Current Visit: Yes - Problem List Review Problem List Initiated/Reviewed/Updated: Yes - My Orders Last 24 Hours: My Active Orders 10/27/18 10:29 OT Evaluation and Treatment [CONS] Routine PT Evaluation and Treatment [CONS] Routine 10/28/18 08:40 Echo Comp wo Cont [US] Urgent - Plan Plan:: Obtain ECHO today. Discharge today. Needs strengthening
[2018-10-28] MEDS: Tiotropium Inhaler 18 MCG Inhalation Powder Cap Kit of 5 INH SCH (10:17)
--- NOTE | 2018-10-28 11:59 | DISCH ---
DISCHARGE DATE: 10/28/2018 REASON FOR ADMISSION: 1. Respiratory failure due to COPD. 2. Community-acquired pneumonia. 3. Hyperthyroidism. 4. Hyponatremia. 5. General weakness and debility. 6. Palliative care status. CONSULTATIONS: None. DISCHARGE DIAGNOSES: 1. Generalized weakness and debility after ICU stay. 2. Pneumonia, resolved. 3. Chronic obstructive pulmonary disease, stable, oxygen-dependent. 4. Congestive heart failure, new. 5. Palliative care status. 6. Hyperthyroidism. BRIEF HISTORY AND HOSPITAL COURSE: A 78-year-old female, who came in with respiratory failure and needed BiPAP for respiratory support. She has COPD and uses oxygen at the [facility]. She was treated with antibiotics, IV Solu- Medrol, and improved. She was noted to be having crackles and the BNP was elevated. Lasix was initiated and an echocardiogram was done on the day of discharge. She was deemed too weak to go back to the [facility]. She is admitted to swing bed for rehab on the following medications: 1. Docusate 100 mg daily. 2. Diltiazem 240 mg a day. 3. Furosemide 20 mg b.i.d. 4. Losartan 50 mg a day. 5. Methimazole 5 mg a day. 6. Dulera 2 puffs b.i.d. 7. Prednisone 10 mg b.i.d. for 3 more days. 8. Risperidone 0.5 mg at bedtime and 0.25 mg daily. 9. Spiriva. FOLLOWUP: Will be seen in the swing bed. I spent more than 35 minutes in discharge. /[id number] PEREZ/KIRK
== END 2018-10-28 10:45 | disposition swing bed (61) | DRG 190 ==
LOC: FB.ED 15:24 → FB.MS 16:43 → FB.ICU 10-22 22:15 → FB.MS 10-26 09:00
PROVIDERS: ADMIT Family Medicine; ATTEND Family Medicine
DX: J44.0 Chronic obstructive pulmonary disease with (acute) lower respiratory infection (principal); J18.1 Lobar pneumonia, unspecified organism; J96.90 Respiratory failure, unspecified, unspecified whether with hypoxia or hypercapnia; E87.1 Hypo-osmolality and hyponatremia; Z51.5 Encounter for palliative care; Z66 Do not resuscitate; I10 Essential (primary) hypertension; J44.1 Chronic obstructive pulmonary disease with (acute) exacerbation; I11.0 Hypertensive heart disease with heart failure; I50.9 Heart failure, unspecified; R06.02 Shortness of breath; Z99.81 Dependence on supplemental oxygen; E05.90 Thyrotoxicosis, unspecified without thyrotoxic crisis or storm; Z87.891 Personal history of nicotine dependence; Z79.52 Long term (current) use of systemic steroids; R53.1 Weakness; R53.81 Other malaise
CPT/HCPCS: 36415; 71045; 80053; 81001; 85025; 87804 ×2; 96360; 99285; G0480; J7030; 36600; 51702; 71046; 80048; 82803; 83880; 85379; 87040; 87086; 94640; 97165-GO; 97166-GO; 97535-GO; 97542-GO; A9270-GY; J0456; J0696; J1650; J1940; J2270; J2930; J7050; J7620-GY

== ENCOUNTER 2018-10-28 10:45 | Inpatient (IN) | payer MEDICARE, BC ==
[2018-10-28] MEDS ORDERED: Magnesium Hydroxide 400 MG/5 ML Susp 30 ML Cup PO PRN (12:41)
[2018-10-28] MEDS ORDERED: Bisacodyl 10 MG Supp RECTAL PRN (12:41)
[2018-10-28] MEDS: Furosemide 20 MG Tab PO SCH (14:13)
[2018-10-28] MEDS: Albuterol/Ipratropium 3.0-0.5 MG/3 ML Neb Soln NEB SCH ×3 (14:13→20:57)
[2018-10-28] MEDS: predniSONE 20 MG Tab PO SCH (17:59)
--- NOTE | 2018-10-28 19:18 | PCM.HP ---
H&P History of Present Illness - General Date of Service: 10/28/18 Admit Problem/Dx: Admission Diagnosis/Problem Admission Diagnosis/Problem Weakness Source of Information: Patient History Limitations: Reports: No Limitations - History of Present Illness Initial Comments - Free Text/Narative: This is a 78-year-old female admitted to swing bed for rehabilitation. She was in the hospital for acute respiratory failure secondary to and COPD exacerbation. She was deemed too weak and able to ambulate by herself, thus she is being admitted to swing bed for strengthening and activities of daily living - Related Data Allergies/Adverse Reactions: Allergies Allergy/AdvReac Type Severity Reaction Status Date / Time No Known Allergies Allergy Verified 10/28/18 13:49 Home Medications: Home Meds Diltiazem HCl [Dilt-Xr] 240 mg PO DAILY 10/20/18 [History] Docusate Sodium [Stool Softener] 100 mg PO DAILY 10/20/18 [History] Losartan [Cozaar] 50 mg PO DAILY 10/20/18 [History] Umeclidinium [place] [Incruse Ellipta] 62.5 mcg IN DAILY 10/20/18 [History] methIMAzole [Methimazole] 5 mg PO DAILY 10/20/18 [History] risperiDONE 0.25 mg PO DAILY 10/20/18 [History] risperiDONE 0.5 mg PO BEDTIME 10/20/18 [History] Albuterol/Ipratropium [DuoNeb 3.0-0.5 MG/3 ML] 3 ml NEB QIDRT #30 neb 10/28/18 [ Rx] Bisacodyl [Dulcolax] 10 mg RECTAL DAILY PRN supp 10/28/18 [Rx] Furosemide [Lasix] 20 mg PO BIDDIURETIC #60 tablet 10/28/18 [Rx] Magnesium Hydroxide [Milk of Magnesia] 30 ml PO BID PRN cup 10/28/18 [Rx] Mometasone/Formoterol [Dulera 200-5 MCG] 2 puff INH BID 10/28/18 [History] Past Medical History HEENT History: Reports: Cataract Cardiovascular History: Reports: Hypertension Respiratory History: Reports: COPD, Other (See Below) Other Respiratory History: 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 GI Surgical History: Reports: Other (See Below) Social & Family History - Family History Family Medical History: Noncontributory - Caffeine Use Caffeine Use: Reports: Coffee H&P Review of Systems - Review of Systems: Review Of Systems: ROS reveals no pertinent complaints other than HPI. Exam - Exam Exam: See Below - Vital Signs Vital Signs: Last Vital Signs Temp 97.9 F 10/28/18 12:39 Pulse 88 10/28/18 12:39 Resp 24 H 10/28/18 12:39 BP 122/58 L 10/28/18 12:39 Pulse Ox 88 L 10/28/18 12:39 Weight: 50.984 kg - Exam Quality Assessment: Supplemental Oxygen General: Alert, Oriented HEENT: PERRLA Lungs: Clear to Auscultation, Decreased Breath Sounds Cardiovascular: Regular Rate GI/Abdominal Exam: Soft, Non-Tender (Female) Exam: Deferred Rectal (Female) Exam: Deferred Back Exam: Normal Inspection Extremities: Normal Inspection Skin: Warm Neurological: Cranial Nerves Intact Psychiatric: Alert, Normal Affect - Problem List (1) Weakness acquired in ICU SNOMED Code(s): 01666547 ICD Code: R53.1 - WEAKNESS Status: Acute Current Visit: No (2) COPD exacerbation SNOMED Code(s): 627769416 ICD Code: J44.1 - CHRONIC OBSTRUCTIVE PULMONARY DISEASE W (ACUTE) EXACERBATION Status: Acute Current Visit: No (3) On home oxygen therapy SNOMED Code(s): 205534869929 ICD Code: Z99.81 - DEPENDENCE ON SUPPLEMENTAL OXYGEN Status: Acute Current Visit: No (4) Palliative care status SNOMED Code(s): 544217280 ICD Code: Z51.5 - ENCOUNTER FOR PALLIATIVE CARE Status: Acute Current Visit: No (5) RLL pneumonia SNOMED Code(s): 931553012 ICD Code: J18.1 - LOBAR PNEUMONIA, UNSPECIFIED ORGANISM Status: Acute Current Visit: No (6) CHF (congestive heart failure) SNOMED Code(s): 45715562 ICD Code: I50.9 - HEART FAILURE, UNSPECIFIED Status: Acute Current Visit : Yes Problem List Initiated/Reviewed/Updated: Yes Orders Last 24hrs: Active Orders 24 hr Category Date Time Status Patient Status [ADT] Routine ADT 10/28/18 12:39 Active Height and Weight [RC] WEEKLY Care 10/28/18 12:39 Active Oxygen Therapy [RC] PRN Care 10/28/18 12:39 Active Up With Assistance [RC] 09,13,17,21 Care 10/28/18 12:39 Active Vital Signs [RC] 08 Care 10/28/18 12:39 Active OT Evaluation and Treatment [CONS] Routine Cons 10/28/18 12:39 Active PT Evaluation and Treatment [CONS] Routine Cons 10/28/18 12:39 Active Regular Diet [DIET] Diet 10/28/18 Breakfast Active Albuterol/Ipratropium [DuoNeb 3.0-0.5 MG/3 ML] Med 10/28/18 13:00 Active 3 ml NEB QIDRT Bisacodyl [Dulcolax] Med 10/28/18 12:41 Active 10 mg RECTAL DAILY PRN Diltiazem [Dilacor XR] Med 10/29/18 09:00 Active 240 mg PO DAILY Docusate Sodium [Colace] Med 10/29/18 09:00 Active 100 mg PO DAILY Furosemide [Lasix] Med 10/28/18 14:00 Active 20 mg PO BIDDIURETIC Losartan [Cozaar] Med 10/29/18 09:00 Active 50 mg PO DAILY Magnesium Hydroxide [Milk of Magnesia] Med 10/28/18 12:41 Active 30 ml PO BID PRN Mometasone/Formoterol [Dulera 200-5 MCG] Med 10/28/18 21:00 Active 0 puff IH BIDRT Tiotropium [Spiriva HandiHaler] Med 10/29/18 09:00 Active 18 mcg INH DAILY methIMAzole Med 10/29/18 09:00 Active 5 mg PO DAILY predniSONE Med 10/28/18 18:00 Active 20 mg PO BIDMEALS risperiDONE [RisperiDAL] Med 10/29/18 09:00 Active 0.25 mg PO DAILY risperiDONE [RisperiDAL] Med 10/28/18 21:00 Active 0.5 mg PO BEDTIME Resuscitation Status Routine Resus Stat 10/28/18 12:39 Ordered Medication Orders Albuterol/Ipratropium (Duoneb 3.0-0.5 Mg/3 Ml) 3 ml NEB QIDRT [facility] Last Admin: 10/28/18 16:42 Dose: 3 ml Admin: 10/28/18 14:13 Dose: 3 ml Bisacodyl (Dulcolax) 10 mg RECTAL DAILY PRN PRN Reason: Constipation Diltiazem HCl (Dilacor Xr) 240 mg PO DAILY ADI Docusate Sodium (Colace) 100 mg PO DAILY ADI Furosemide (Lasix) 20 mg PO BIDDIURETIC [facility] Last Admin: 10/28/18 14:13 Dose: 20 mg Losartan Potassium (Cozaar) 50 mg PO DAILY ADI Magnesium Hydroxide (Milk Of Magnesia) 30 ml PO BID PRN PRN Reason: Constipation Methimazole (Methimazole) 5 mg PO DAILY [facility] Mometasone Furoate/Formoterol Fumar (Dulera 200-5 Mcg) 0 puff IH BIDRT ADI Prednisone (Prednisone) 20 mg PO BIDMEALS [facility] Stop: 10/30/18 18:01 Last Admin: 10/28/18 17:59 Dose: 20 mg Risperidone (Risperidal) 0.5 mg PO BEDTIME ADI Risperidone (Risperidal) 0.25 mg PO DAILY [facility] Tiotropium [place] (Spiriva Handihaler) 18 mcg INH DAILY [facility] Assessment/Plan Comment:: Admit to [facility]. PT and OT consult. Prednisone x 3 days. Duonebs PRN. Lasix,until results of ECHO,then re-evaluate.
[2018-10-28] MEDS: risperiDONE 0.5 MG Tab PO SCH (20:52)
[2018-10-28] MEDS: Formoterol/Mometasone 200-5 MCG 8.8 GM Inhaler IH SCH (20:53)
[2018-10-29] MEDS: Albuterol/Ipratropium 3.0-0.5 MG/3 ML Neb Soln NEB SCH ×4 (06:04→21:05)
[2018-10-29] MEDS: Formoterol/Mometasone 200-5 MCG 8.8 GM Inhaler IH SCH ×2 (06:26→21:06)
[2018-10-29] MEDS: Furosemide 20 MG Tab PO SCH ×2 (08:13→14:26)
[2018-10-29] MEDS: Diltiazem 240 MG Cap.ER PO SCH (08:13)
[2018-10-29] MEDS: predniSONE 20 MG Tab PO SCH ×2 (08:13→17:48)
[2018-10-29] MEDS: risperiDONE 0.25 MG Tab PO SCH (08:14)
[2018-10-29] MEDS: Losartan 50 MG Tab PO SCH (08:14)
[2018-10-29] MEDS: Methimazole 5 MG Tab PO SCH (08:15)
[2018-10-29] MEDS: Tiotropium Inhaler 18 MCG Inhalation Powder Cap Kit of 5 INH SCH (08:17)
[2018-10-29] MEDS: Docusate Sodium 100 MG Cap PO SCH (08:17)
[2018-10-29] MEDS: risperiDONE 0.5 MG Tab PO SCH (21:07)
[2018-10-30] MEDS: Formoterol/Mometasone 200-5 MCG 8.8 GM Inhaler IH SCH ×2 (06:25→21:09)
[2018-10-30] MEDS: Albuterol/Ipratropium 3.0-0.5 MG/3 ML Neb Soln NEB SCH ×4 (06:27→20:46)
[2018-10-30] MEDS: Furosemide 20 MG Tab PO SCH ×2 (08:44→14:00)
[2018-10-30] MEDS: predniSONE 20 MG Tab PO SCH ×2 (08:44→17:45)
[2018-10-30] MEDS: Docusate Sodium 100 MG Cap PO SCH (08:45)
[2018-10-30] MEDS: Losartan 50 MG Tab PO SCH (08:46)
[2018-10-30] MEDS: Diltiazem 240 MG Cap.ER PO SCH (08:47)
[2018-10-30] MEDS: Methimazole 5 MG Tab PO SCH (08:47)
[2018-10-30] MEDS: risperiDONE 0.25 MG Tab PO SCH (08:48)
[2018-10-30] MEDS: Tiotropium Inhaler 18 MCG Inhalation Powder Cap Kit of 5 INH SCH (08:48)
[2018-10-30] MEDS: risperiDONE 0.5 MG Tab PO SCH (21:09)
[2018-10-30] MEDS: Nystatin Susp 100,000 Unit/ML 5 ML UD Cup PO SCH (22:00)
[2018-10-31] MEDS: Albuterol/Ipratropium 3.0-0.5 MG/3 ML Neb Soln NEB SCH ×4 (06:52→20:12)
[2018-10-31] MEDS: Formoterol/Mometasone 200-5 MCG 8.8 GM Inhaler IH SCH ×2 (06:52→20:19)
[2018-10-31] MEDS: Docusate Sodium 100 MG Cap PO SCH (08:05)
[2018-10-31] MEDS: Losartan 50 MG Tab PO SCH (08:05)
[2018-10-31] MEDS: Furosemide 20 MG Tab PO SCH (08:05)
[2018-10-31] MEDS: Diltiazem 240 MG Cap.ER PO SCH (08:05)
[2018-10-31] MEDS: Methimazole 5 MG Tab PO SCH (08:05)
[2018-10-31] MEDS: risperiDONE 0.25 MG Tab PO SCH (08:06)
[2018-10-31] MEDS: Tiotropium Inhaler 18 MCG Inhalation Powder Cap Kit of 5 INH SCH (08:06)
[2018-10-31] MEDS: Nystatin Susp 100,000 Unit/ML 5 ML UD Cup PO SCH ×4 (08:08→20:20)
--- NOTE | 2018-10-31 11:37 | PN ---
DATE SEEN: 10/31/2018 SUBJECTIVE: Danita Simmons is a 78-year-old, female, in swing bed. Plan is for transfer to a half-way on Saturday. COPD. Plans to [facility] Saturday for 11/03/2018 at 10:00 a.m. , 10 years duration, had been in [facility]. PHYSICAL EXAMINATION: VITAL SIGNS: Stable. O2 in place. MOUTH AND OROPHARYNX: Clear. CHEST: Clear. Decreased AP diameter. Prolonged expiratory phase. HEART: Distant heart sounds, moderate ectopy. ASSESSMENT: Advanced chronic obstructive pulmonary disease. PLAN: Medications, care and treatment appropriate, presently on diltiazem, docusate, furosemide, losartan, Dulera inhalation, Mycostatin for oral thrush, low-dose Risperdal, Spiriva, and significant doses of prednisone, which should be dose adjusted accordingly. /[id number] BRUNO/KIRK
[2018-10-31] MEDS: risperiDONE 0.5 MG Tab PO SCH (20:19)
[2018-11-01] MEDS: Albuterol/Ipratropium 3.0-0.5 MG/3 ML Neb Soln NEB SCH ×4 (06:26→20:46)
[2018-11-01] MEDS: Formoterol/Mometasone 200-5 MCG 8.8 GM Inhaler IH SCH ×2 (06:29→20:49)
[2018-11-01] MEDS: Docusate Sodium 100 MG Cap PO SCH (08:38)
[2018-11-01] MEDS: Diltiazem 240 MG Cap.ER PO SCH (08:39)
[2018-11-01] MEDS: Furosemide 20 MG Tab PO SCH (08:39)
[2018-11-01] MEDS: Methimazole 5 MG Tab PO SCH (08:39)
[2018-11-01] MEDS: Losartan 50 MG Tab PO SCH (08:39)
[2018-11-01] MEDS: Nystatin Susp 100,000 Unit/ML 5 ML UD Cup PO SCH ×4 (08:41→20:49)
[2018-11-01] MEDS: Tiotropium Inhaler 18 MCG Inhalation Powder Cap Kit of 5 INH SCH (08:41)
[2018-11-01] MEDS: risperiDONE 0.25 MG Tab PO SCH (08:41)
--- NOTE | 2018-11-01 10:42 | PN ---
DATE SEEN: 11/01/2018 SUBJECTIVE: Danita Simmons is a 78-year-old female, presently at [facility] for rehab. Complicated COPD, supplementary O2, problematic weakness. Planning to go to [facility] on Saturday at 1000 hours. She is , previously living at [facility]. LABORATORY STUDIES: None indicated. MEDICATIONS: Reviewed and appropriate. OBJECTIVE: VITAL SIGNS: 36.6, 125/47, 73, 18, 89 on 2 L. GENERAL: Appears comfortable. Speech was limited. HEENT: Mouth and oropharynx clear. NECK: No adenopathy. No carotid bruits. No JVD. CHEST: Clear in all lung pompa. Decreased breath sounds at both bases. HEART: Distant heart sounds. No ectopy or murmur. ABDOMEN: Benign. ASSESSMENT: End-stage chronic obstructive pulmonary disease, O2 dependent. PLAN: Medications, care, and treatment appropriate, plans on board for discharge. /[id number] BRUNO/KIRK
[2018-11-01] MEDS: risperiDONE 0.5 MG Tab PO SCH (20:49)
[2018-11-02] MEDS: Albuterol/Ipratropium 3.0-0.5 MG/3 ML Neb Soln NEB SCH ×4 (06:20→20:01)
[2018-11-02] MEDS: Formoterol/Mometasone 200-5 MCG 8.8 GM Inhaler IH SCH ×2 (06:21→20:01)
[2018-11-02] MEDS: Docusate Sodium 100 MG Cap PO SCH (08:43)
[2018-11-02] MEDS: risperiDONE 0.25 MG Tab PO SCH (08:44)
[2018-11-02] MEDS: Diltiazem 240 MG Cap.ER PO SCH (08:44)
[2018-11-02] MEDS: Furosemide 20 MG Tab PO SCH (08:44)
[2018-11-02] MEDS: Methimazole 5 MG Tab PO SCH (08:44)
[2018-11-02] MEDS: Nystatin Susp 100,000 Unit/ML 5 ML UD Cup PO SCH ×4 (08:44→20:01)
[2018-11-02] MEDS: Losartan 50 MG Tab PO SCH (08:44)
[2018-11-02] MEDS: Tiotropium Inhaler 18 MCG Inhalation Powder Cap Kit of 5 INH SCH (08:45)
--- NOTE | 2018-11-02 11:23 | PN ---
DATE SEEN: 11/02/2018 SUBJECTIVE: Danita Simmons is a 78-year-old admitted with exacerbation of COPD. Had been hospitalized with acute respiratory failure with underlying COPD and congestive heart failure. Progress has been moderate. Ambulation skills are limited. Complicated cough. Intraoral thrush is improving. Laboratory studies: None recent. OBJECTIVE: VITAL SIGNS: 140/49, 36.6, 2 L SaO2 of 89%. GENERAL: Appears comfortable. Speech was limited by breathing. HEENT: Revealed mouth and oropharynx were clear, better thrush. NECK: Benign. CHEST: Clear in all lung pompa, decreased breath sounds. Increased AP diameter. Prolonged expiratory phase. HEART: Distant heart sounds. ABDOMEN: Benign. Minimal edema. ASSESSMENT: 1. Congestive heart failure. 2. Chronic obstructive pulmonary disease. PLAN: Discharge to [facility] planned in the morning. Complementary care and well being. /[id number] BRUNO/KIRK
[2018-11-02] MEDS: risperiDONE 0.5 MG Tab PO SCH (20:02)
[2018-11-03] MEDS: Albuterol/Ipratropium 3.0-0.5 MG/3 ML Neb Soln NEB SCH (06:03)
[2018-11-03] MEDS: Formoterol/Mometasone 200-5 MCG 8.8 GM Inhaler IH SCH (06:04)
[2018-11-03] MEDS ORDERED: Tuberculin, PPD 5 Units/0.1 ML 1 ML MDV IDERM ONE (08:11)
[2018-11-03] MEDS: Diltiazem 240 MG Cap.ER PO SCH (09:08)
[2018-11-03] MEDS: Losartan 50 MG Tab PO SCH (09:08)
[2018-11-03] MEDS: Methimazole 5 MG Tab PO SCH (09:09)
[2018-11-03] MEDS: Furosemide 20 MG Tab PO SCH (09:09)
[2018-11-03] MEDS: Docusate Sodium 100 MG Cap PO SCH (09:10)
[2018-11-03] MEDS: risperiDONE 0.25 MG Tab PO SCH (09:10)
[2018-11-03] MEDS: Tiotropium Inhaler 18 MCG Inhalation Powder Cap Kit of 5 INH SCH (09:11)
[2018-11-03] MEDS: Nystatin Susp 100,000 Unit/ML 5 ML UD Cup PO SCH (09:12)
[2018-11-03] MEDS ORDERED: Acetaminophen 500 MG Tab PO SCH (09:15)
--- NOTE | 2018-11-03 13:10 | DISCH ---
DISCHARGE DATE: 11/03/2018 HOSPITAL COURSE: Danita Simmons is a 78-year-old female, admitted to swing bed status from acute care. Was hospitalized for acute respiratory failure, underlying COPD. Weakness and difficulty dictated intervention. While at [facility], she underwent therapy, rehab, and appropriate care. Response was unsatisfactory. Supplemental O2 was required. Independent living is no longer an opportunity. PHYSICAL EXAMINATION: VITAL SIGNS: At the time of discharge, 128/48, mean blood pressure 74, 17, and 93% on 2 L. GENERAL: Elderly lady, cooperative, conversant, cachetic, obvious distress, with supplemental O2. HEENT: Funduscopic benign. Bright TMs. Clear nasal discharge. Mouth and oropharynx clear. Thrush resolving. Poor dentition. NECK: Benign. Thyroid small. CHEST: Increased AP diameter. Prolonged expiratory phase. Coarse rhonchi. HEART: Sounds distant. S4 present. No significant murmur. ABDOMEN: Rotund and without masses. MUSCULOSKELETAL: Good peripheral pulses. Sensation intact. 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 PLAN: Discharge to snf. Complementary care and well being. Kina Chance NP, and Juan Diehl MD, to be providers of record. Addendum: A 30-minute discharge plan, care, discharge exam, snf admission, and recommendations. /[id number] BRUNO/KIRK CC: [facility]
== END 2018-11-03 10:30 | DRG 947 ==
LOC: FB.MS 10:45
PROVIDERS: ADMIT Family Medicine; ATTEND Family Medicine
DX: R53.1 Weakness (principal); J96.00 Acute respiratory failure, unspecified whether with hypoxia or hypercapnia; J18.1 Lobar pneumonia, unspecified organism; J44.0 Chronic obstructive pulmonary disease with (acute) lower respiratory infection; J44.1 Chronic obstructive pulmonary disease with (acute) exacerbation; Z99.81 Dependence on supplemental oxygen; Z51.5 Encounter for palliative care; Z66 Do not resuscitate; I11.0 Hypertensive heart disease with heart failure; I50.9 Heart failure, unspecified
CPT/HCPCS: 86580; 94640; 97110-GP; 97116-GP; 97161-GP; 97530-GO; 97530-GP; 97535-GO; 97542-GO; A9270-GY; J7620-GY

== ENCOUNTER 2019-03-01 06:54 | Inpatient (IN) | payer MEDICARE, BC ==
[2019-03-01] MEDS ORDERED: Albuterol/Ipratropium 3.0-0.5 MG/3 ML Neb Soln NEB ONE (07:22)
[2019-03-01] MEDS ORDERED: methylPREDNISolone Sodium Succinate 125 MG/2 ML SDV IVPUSH ONE (07:24)
--- NOTE | 2019-03-01 07:24 | EDM.PDOC ---
ED HPI GENERAL MEDICAL PROBLEM - General Stated Complaint: SOB Time Seen by Provider: 03/01/19 06:54 Source of Information: Reports: Patient, Other (FPC) History Limitations: Reports: Respiratory Distress - History of Present Illness INITIAL COMMENTS - FREE TEXT/NARRATIVE: 79 y.o.w.f with multiple med issues including COPD, [facility] of SOB. No Chest Pain, O2 was 89% on RA, on arrival. Pt is a poor historian. No other acute med issues. BP 147/72 RR 30 Pulse ox 89% on 3 liters O2 by NC Temp 36.6 Pulse 101 Onset Date: 02/20/19 Onset Time: 10:00 Duration: Day(s):, Getting Worse, Intermittent Location: Reports: Chest Quality: Reports: Dull Severity: Moderate Improves with: Reports: Rest Worsens with: Reports: Movement Context: Reports: Other (COPD) Associated Symptoms: Reports: Loss of Appetite, Shortness of Breath - Related Data Allergies Allergy/AdvReac Type Severity Reaction Status Date / Time No Known Allergies Allergy Verified 03/01/19 07:41 Home Meds: Home Meds Diltiazem HCl [Dilt-Xr] 240 mg PO DAILY 10/20/18 [History] Docusate Sodium [Stool Softener] 100 mg PO DAILY 10/20/18 [History] Losartan [Cozaar] 75 mg PO DAILY 10/20/18 [History] Umeclidinium Pilot [Incruse Ellipta] 62.5 mcg IN DAILY 10/20/18 [History] methIMAzole [Methimazole] 5 mg PO DAILY 10/20/18 [History] risperiDONE 0.25 mg PO DAILY 10/20/18 [History] risperiDONE 0.5 mg PO BEDTIME 10/20/18 [History] Mometasone/Formoterol [Dulera 200 MCG/5 MCG] 2 puff INH BID 10/28/18 [History] Acetaminophen [Tylenol Extra Strength] 1,000 mg PO TID 03/01/19 [History] Albuterol Sulfate 1 inh IH DAILY 03/01/19 [History] Albuterol Sulfate 1 inh IH Q6H PRN 03/01/19 [History] Melatonin 5 mg BEDTIME 03/01/19 [History] Mirtazapine 7.5 mg BEDTIME 03/01/19 [History] Multivitamin with Minerals [Multivitamins with Minerals] 1 each PO DAILY [History] Past Medical History HEENT History: Reports: Cataract Cardiovascular History: Reports: Hypertension Respiratory History: Reports: COPD, Other (See Below) Other Respiratory History: 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 Social & Family History - Family History Family Medical History: Noncontributory - Caffeine Use Caffeine Use: Reports: Coffee ED ROS GENERAL - Review of Systems Review Of Systems: Unable To Obtain ED EXAM, GENERAL - Physical Exam Exam: See Below Exam Limited By: Respiratory Distress General Appearance: Alert, Moderate Distress, Cachetic Eye Exam: Bilateral Eye: Normal Inspection Ears: Normal External Exam Ear Exam: Bilateral Ear: Auricle Normal Nose: Normal Inspection, Normal Mucosa Throat/Mouth: Normal Lips, Normal Voice, No Airway Compromise Head: Atraumatic, Normocephalic Neck: Normal Inspection, Supple, Non-Tender Respiratory/Chest: Chest Non-Tender, Respiratory Distress, Decreased Breath Sounds Cardiovascular: Normal Peripheral Pulses, Regular Rate, Rhythm, No Edema Peripheral Pulses: 2+: Carotid (L) GI/Abdominal: Normal Bowel Sounds, Soft (Female) Exam: Deferred Rectal (Female) Exam: Deferred Back Exam: Normal Inspection, Full Range of Motion Extremities: Normal Inspection, Normal Range of Motion Neurological: Alert, Oriented, CN II-XII Intact, Normal Cognition Psychiatric: Normal Affect, Normal Mood Skin Exam: Warm, Dry, Intact, Pallor Lymphatic: No Adenopathy EKG INTERPRETATION EKG Date: 03/01/19 Time: 07:15 Rhythm: NSR Rate (Beats/Min): 107 Allons: Normal P-Wave: Present QRS: Normal ST-T: Normal QT: Normal Comparison: NA - No Prior EKG (Sinus tach with prequent PACs) Course - Vital Signs Text/Narrative:: 79 y.o.w.f with multiple med issues including COPD, [facility], due to worsening of SOB. No Chest Pain, O2 was 89% on RA, on arrival. Pt is a poor historian. No other acute med issues. BP 147/72 RR 30 Pulse ox 89% on 3 liters O2 by NC Temp 36.6 Pulse 101 PE: Weak, pale in resp distress Imaging: CXR R pleural effusion Labs: Lactic acid 0.6 WBC 17K HCO3 51 BUN 17 Cr 1.4 BNP 245 pH 7.35 pO2 76 Impression: Right plural effusion, COPD exacerbation. DNR/DNI Tx: O2 by NC, Duo neb Solumedrol, Abx Reexam: Improved 9.31 am: Consultation: Dr. Alba, Hospitalist: Accepted the pt for admission Plan: Admit to vick. Last Recorded V/S: Last Vital Signs Temp 36.2 C 03/01/19 06:54 Pulse 110 H 03/01/19 07:36 Resp 18 03/01/19 07:32 BP 153/78 H 03/01/19 07:32 Pulse Ox 93 L 03/01/19 07:36 - Orders/Labs/Meds Orders: Active Orders 24 hr Category Date Time Status EKG Documentation Completion [RC] ASDIRECTED Care 03/01/19 07:18 Active Chest 1V Frontal [CR] Stat Exams 03/01/19 07:17 Taken CULTURE BLOOD [BC] Urgent Lab 03/01/19 07:15 Received CULTURE BLOOD [BC] Urgent Lab 03/01/19 09:10 Received UA W/MICROSCOPIC [URIN] Stat Lab 03/01/19 09:59 Ordered Sodium Chloride 0.9% [Saline Flush] Med 03/01/19 07:35 Active 10 ml FLUSH ASDIRECTED PRN Blood Culture x2 Reflex Set [OM.PC] Urgent Oth 03/01/19 08:55 Ordered Saline Lock Insert [OM.PC] Routine Oth 03/01/19 07:35 Ordered EKG 12 Lead [EK] Routine Ther 03/01/19 07:17 Ordered Medication Orders Acetaminophen (Tylenol Extra Strength) 1,000 mg PO TID ADI Albuterol/Ipratropium (Duoneb 3.0-0.5 Mg/3 Ml) 3 ml INH TIDRT DAI Diltiazem HCl (Dilacor Xr) 240 mg PO DAILY ADI Furosemide (Lasix) 40 mg PO DAILY ADI Losartan Potassium (Cozaar) 75 mg PO DAILY ADI Methimazole (Methimazole) 5 mg PO DAILY ADI Mirtazapine (Remeron) 7.5 mg PO BEDTIME ADI Mometasone Furoate/Formoterol Fumar (Dulera 200-5 Mcg) 2 puff INH BID ADI Non-Formulary Medication (Melatonin [Melatonin]) 5 mg PO BEDTIME ADI Non-Formulary Medication (Umeclidinium Pilot [Incruse Ellipta]) 62.5 mcg IN DAILY ADI Risperidone (Risperidal) 0.5 mg PO BEDTIME ADI Risperidone (Risperidal) 0.25 mg PO DAILY ADI Senna/Docusate Sodium (Senna Plus) 1 tab PO BID PRN PRN Reason: Constipation Sodium Chloride (Saline Flush) 10 ml FLUSH ASDIRECTED PRN PRN Reason: Keep Vein Open Last Admin: 03/01/19 07:42 Dose: 10 ml Labs: Laboratory Tests 03/01/19 03/01/19 03/01/19 Range/Units 07:15 07:15 07:15 WBC 17.4 H (4.5-12.0) X10-3/uL RBC 3.71 (3.23-5.20) x10(6)uL Hgb 11.8 (11.5-15.5) g/dL Hct 35.1 (30.0-51.3) % MCV 94.6 (80-96) fL MCH 31.7 (27.7-33.6) pg MCHC 33.5 (32.2-35.4) g/dL RDW 13.5 (11.5-15.5) % Plt Count 605 H (125-369) X10(3)uL MPV 6.1 L (7.4-10.4) fL Add Manual Diff Yes Neutrophils % (Manual) 75 (46-82) % Lymphocytes % (Manual) 16 (13-37) % Monocytes % (Manual) 8 (4-12) % Eosinophils % (Manual) 1 (0-5) % ABG pH (7.35-7.45) ABG pCO2 (35-45) mmHg ABG pO2 (83-108) mmHg ABG HCO3 (22-26) mmol/L ABG O2 Saturation (96-97) % ABG Base Excess (-2-2) Jason Test O2 Delivery Device Sodium 135 (135-145) mmol/L Potassium 4.9 (3.5-5.3) mmol/L Chloride 93 L (100-110) mmol/L Carbon Dioxide 51 H* (21-32) mmol/L BUN 17 (7-18) mg/dL Creatinine 0.4 L (0.55-1.02) mg/dL Est Cr Clr Drug Dosing TNP Estimated GFR (MDRD) > 60 (>60) BUN/Creatinine Ratio 42.5 H (9-20) Glucose 123 H (80-116) mg/dL Lactic Acid (0.4-2.2) mmol/L Calcium 9.7 (8.6-10.2) mg/dL Creatine Kinase 17 L (60-160) IU/L Troponin I < 0.017 L (<0.017-0.056) ng/mL NT-Pro-B Natriuret Pep (<=450) pg/mL 03/01/19 03/01/19 03/01/19 Range/Units 07:15 07:15 07:55 WBC (4.5-12.0) X10-3/uL RBC (3.23-5.20) x10(6)uL Hgb (11.5-15.5) g/dL Hct (30.0-51.3) % MCV (80-96) fL MCH (27.7-33.6) pg MCHC (32.2-35.4) g/dL RDW (11.5-15.5) % Plt Count (125-369) X10(3)uL MPV (7.4-10.4) fL Add Manual Diff Neutrophils % (Manual) (46-82) % Lymphocytes % (Manual) (13-37) % Monocytes % (Manual) (4-12) % Eosinophils % (Manual) (0-5) % ABG pH 7.35 (7.35-7.45) ABG pCO2 99 H* (35-45) mmHg ABG pO2 67 L (83-108) mmHg ABG HCO3 53 H (22-26) mmol/L ABG O2 Saturation 90 L (96-97) % ABG Base Excess 21.7 H (-2-2) Jason Test Passed O2 Delivery Device Room air Sodium (135-145) mmol/L Potassium (3.5-5.3) mmol/L Chloride (100-110) mmol/L Carbon Dioxide (21-32) mmol/L BUN (7-18) mg/dL Creatinine (0.55-1.02) mg/dL Est Cr Clr Drug Dosing Estimated GFR (MDRD) (>60) BUN/Creatinine Ratio (9-20) Glucose (80-116) mg/dL Lactic Acid 0.6 (0.4-2.2) mmol/L Calcium (8.6-10.2) mg/dL Creatine Kinase (60-160) IU/L Troponin I (<0.017-0.056) ng/mL NT-Pro-B Natriuret Pep 293 (<=450) pg/mL Meds: Medications Generic Name Dose Route Start Last Admin Trade Name Freq PRN Reason Stop Dose Admin Acetaminophen 1,000 mg 03/01/19 14:00 Tylenol Extra Strength PO TID ADI Albuterol/Ipratropium 3 ml 03/01/19 15:00 Duoneb 3.0-0.5 Mg/3 Ml INH TIDRT ADI Diltiazem HCl 240 mg 03/02/19 09:00 Dilacor Xr PO DAILY [facility] Furosemide 40 mg 03/01/19 10:15 Lasix PO DAILY [facility] Losartan Potassium 75 mg 03/02/19 09:00 Cozaar PO DAILY [facility] Methimazole 5 mg 03/02/19 09:00 Methimazole PO DAILY [facility] Mirtazapine 7.5 mg 03/01/19 21:00 Remeron PO BEDTIME [facility] Mometasone Furoate/Formoterol Fumar 2 puff 03/01/19 21:00 Dulera 200-5 Mcg INH BID ADI Non-Formulary Medication 5 mg 03/01/19 21:00 Melatonin [Melatonin] PO BEDTIME ADI Non-Formulary Medication 62.5 mcg 03/02/19 09:00 Umeclidinium Pilot [Incruse Ellipta] IN DAILY ADI Risperidone 0.5 mg 03/01/19 21:00 Risperidal PO BEDTIME ADI Risperidone 0.25 mg 03/02/19 09:00 Risperidal PO DAILY ADI Senna/Docusate Sodium 1 tab 03/01/19 09:49 Senna Plus PO BID PRN Constipation Sodium Chloride 10 ml 03/01/19 07:35 03/01/19 07:42 Saline Flush FLUSH 10 ml ASDIRECTED PRN Administration Keep Vein Open Discontinued Medications Generic Name Dose Route Start Last Admin Trade Name Freq PRN Reason Stop Dose Admin Albuterol/Ipratropium 3 ml 03/01/19 07:22 03/01/19 07:35 Duoneb 3.0-0.5 Mg/3 Ml NEB 03/01/19 07:23 3 ml ONETIME ONE Administration Levofloxacin/Dextrose 500 mg/ 100 mls @ 100 mls/hr 03/01/19 08:59 Premix IV 03/01/19 09:58 ONETIME ONE Methylprednisolone Sodium Succinate 125 mg 03/01/19 07:24 03/01/19 07:35 Solu-Medrol IVPUSH 03/01/19 07:25 125 mg ONETIME ONE Administration Risperidone 0.25 mg 03/02/19 21:00 Risperidal PO DAILY@2100 ADI Departure - Departure Time of Disposition: 10:34 Disposition: Admitted As Inpatient 68 Condition: Fair Clinical Impression: Pleural effusion - Discharge Information - My Orders Last 24 Hours: My Active Orders 03/01/19 07:15 CULTURE BLOOD [BC] Urgent 03/01/19 07:17 Chest 1V Frontal [CR] Stat EKG 12 Lead [EK] Routine 03/01/19 07:18 EKG Documentation Completion [RC] ASDIRECTED 03/01/19 07:35 Sodium Chloride 0.9% [Saline Flush] 10 ml FLUSH ASDIRECTED PRN Saline Lock Insert [OM.PC] Routine 03/01/19 08:55 Blood Culture x2 Reflex Set [OM.PC] Urgent 03/01/19 09:10 CULTURE BLOOD [BC] Urgent 03/01/19 09:59 UA W/MICROSCOPIC [URIN] Stat - Assessment/Plan Last 24 Hours: My Active Orders 03/01/19 07:15 CULTURE BLOOD [BC] Urgent 03/01/19 07:17 Chest 1V Frontal [CR] Stat EKG 12 Lead [EK] Routine 03/01/19 07:18 EKG Documentation Completion [RC] ASDIRECTED 03/01/19 07:35 Sodium Chloride 0.9% [Saline Flush] 10 ml FLUSH ASDIRECTED PRN Saline Lock Insert [OM.PC] Routine 03/01/19 08:55 Blood Culture x2 Reflex Set [OM.PC] Urgent 03/01/19 09:10 CULTURE BLOOD [BC] Urgent 03/01/19 09:59 UA W/MICROSCOPIC [URIN] Stat
[2019-03-01] MEDS: Sodium Chloride 0.9% 10 ML Syringe FLUSH PRN (07:42)
[2019-03-01] MEDS ORDERED: Levofloxacin/Dextrose 5%-Water 500 MG in Premix Bag 1 BAG IV ONE (08:59)
[2019-03-01] MEDS ORDERED: Furosemide 40 MG Tab PO SCH (10:15)
[2019-03-01] MEDS: Losartan 25 MG Tab PO SCH (11:43)
--- NOTE | 2019-03-01 13:21 | HP ---
ADMISSION DATE: 03/01/2019 History is from the patient and her old chart. CHIEF COMPLAINT: Shortness of breath. HISTORY OF PRESENT ILLNESS: Ms. Simmons is a 79-year-old woman who currently resides at [facility] because of severe emphysema, weakness, and poor mobility. She has been having increasing shortness of breath for the past 2 days and it got markedly bad today. She denies chest pain, fever, chills, symptoms of recent infection, or cough, but states that her oxygen was turned up to 3 L at the custodial yesterday because of the dyspnea. She was seen in the emergency room by Dr. Jessica and is now admitted to [facility] for hospitalization. PAST MEDICAL HISTORY: Longstanding COPD from cigarette smoking. She quit within the last couple of years. She also has chronic depression with psychosis, mild dementia, chronic essential hypertension, and chronic constipation. She is status post appendectomy and colectomy. She has hyperthyroidism. MEDICATIONS: 1. Incruse Ellipta inhaler 1 puff daily. 2. Risperidone 0.25 mg a.m. and 0.5 mg p.m. This has been a stable dose for her. 3. Dulera 2 puffs b.i.d. 4. Remeron 7.5 mg at bedtime. 5. Tapazole 5 mg daily. 6. Melatonin 5 mg at bedtime. 7. Losartan 75 mg daily. 8. Diltiazem 240 mg daily. 9. Tylenol Extra Strength 1000 mg t.i.d. 10.DuoNebs q.i.d. 11.Docusate 100 mg daily. 12.Multiple vitamin 1 daily. ALLERGIES: None. HABITS: Long-standing smoking, none currently. No alcohol. 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 She resided at [facility] until the last year when she moved to [facility]. REVIEW OF SYSTEMS: Negative for fever, chills, or sweats. Negative for headache. She states she has very severe vision loss and cannot see to read the paper. No recent change in hearing. No cough or purulent sputum. She has chronic dyspnea and is oxygen-dependent for several years. No chest pain or palpitations. She denies any knowledge of previous heart problems. No abdominal pain, nausea, or vomiting. She has chronic constipation. No hematochezia or melena. No joint inflammation, swelling, or skin rash. PHYSICAL EXAMINATION: GENERAL: She is pale, thin, and looks older than her 79 years. VITAL SIGNS: Blood pressure 153/78, pulse 110 and irregular, respirations 18 with pursed lip exhalation, O2 saturation 93% on 3 L nasal cannula, and temperature 97.1. SKIN: Anicteric. No rash noted. HEENT: TMs are clear. Pupils are somewhat clouded. Reaction not visible. Mouth is dry. She has moderate white coating of her mouth consistent with thrush. NECK: Slightly decreased range of motion. SPINE: Significant kyphosis. LUNGS: Have very distant breath sounds. No consolidation is noted. HEART: Irregular. Heart sounds are also distant. No murmur heard. ABDOMEN: Normal bowel sounds. Soft and nontender. EXTREMITIES: No edema. LABORATORY DATA: White count 17,400, hemoglobin 11.8, platelets 605, pCO2 of 99, and PO2 of 67. Sodium 135, potassium 4.9, BUN 17, and creatinine 0.4. Lactic acid 0.6. BNP 293. Troponin less than 0.17. IMAGING: Chest x-ray shows a moderately large size right pleural effusion and severe COPD. EKG; sinus tachycardia at 110 with frequent extrasystoles. ASSESSMENT: A 79-year-old woman with, 1. Exacerbation in dyspnea, multifactorial, but severe chronic obstructive pulmonary disease, compounded by a new right pleural effusion consistent with congestive heart failure. 2. Sinus tachycardia with premature ventricular contractions. 3. Oxygen-dependent chronic obstructive pulmonary disease with respiratory failure, currently DNR/DNI status. 4. Depression with psychosis, stable on current medications. 5. Chronic insomnia. 6. Chronic essential hypertension. 7. Hyperthyroidism, on Tapazole. 8. Osteoporosis with kyphosis. PLAN: She is admitted to acute care. We will diurese her and try to improve her pleural effusion and thus breathing. We will also decrease her diltiazem because of its negative inotropic effect. Continue oxygen therapy and respiratory therapy. We will continue to provide palliative care for her underlying COPD and chronic medical problems. /[id number] RO/MODL
[2019-03-01] MEDS: Acetaminophen 500 MG Tab PO SCH ×2 (14:36→21:11)
[2019-03-01] MEDS: Albuterol/Ipratropium 3.0-0.5 MG/3 ML Neb Soln INH SCH ×2 (14:36→21:12)
[2019-03-01] MEDS: Mirtazapine 15 MG Tab PO SCH (21:00)
[2019-03-01] MEDS ORDERED: Non-Formulary Medication 1 Each (Melatonin [Melatonin] 5 MG) PO SCH (21:00)
[2019-03-01] MEDS ORDERED: Formoterol/Mometasone 200-5 MCG 8.8 GM Inhaler IH ONE (21:00)
[2019-03-01] MEDS ORDERED: Formoterol/Mometasone 200-5 MCG 13 GM Inhaler INH SCH (21:00)
[2019-03-01] MEDS: risperiDONE 0.5 MG Tab PO SCH (21:11)
[2019-03-01] MEDS: Melatonin 3 MG Tab PO SCH (21:12)
[2019-03-01] MEDS: Nystatin Susp 100,000 Unit/ML 5 ML UD Cup PO SCH (21:30)
[2019-03-02] MEDS: Albuterol/Ipratropium 3.0-0.5 MG/3 ML Neb Soln NEB SCH ×6 (01:21→20:20)
[2019-03-02] MEDS ORDERED: Formoterol/Mometasone 200-5 MCG 13 GM Inhaler INH SCH (07:57)
[2019-03-02] MEDS: Losartan 25 MG Tab PO SCH (08:51)
[2019-03-02] MEDS: risperiDONE 0.25 MG Tab PO SCH (08:52)
[2019-03-02] MEDS: Methimazole 5 MG Tab PO SCH (08:52)
[2019-03-02] MEDS: Acetaminophen 500 MG Tab PO SCH ×3 (08:52→20:18)
[2019-03-02] MEDS: Nystatin Susp 100,000 Unit/ML 5 ML UD Cup PO SCH ×4 (08:52→20:16)
[2019-03-02] MEDS: INCRUSE ELLIPTA 62.5 MCG INH SCH (08:54)
[2019-03-02] MEDS: Furosemide 80 MG Tab PO SCH (08:57)
[2019-03-02] MEDS ORDERED: Losartan 25 MG Tab PO SCH (09:00)
[2019-03-02] MEDS ORDERED: Diltiazem 180 MG Cap.CD PO SCH (09:00)
[2019-03-02] MEDS ORDERED: Diltiazem 240 MG Cap.ER PO SCH (09:00)
--- NOTE | 2019-03-02 11:35 | PN ---
DATE SEEN: 03/02/2019 HISTORY: Danita is a 79-year-old woman who was admitted yesterday with respiratory failure. She has a history of longstanding severe oxygen-dependent COPD and had been worse over the past couple of days. She was placed on BiPAP overnight because of O2 sats down into the low 70s. This morning, she was able to be off her BiPAP, but at times is still dropping into the 70s. This seems to improve after nebulizer treatments. Chest x-ray showed presence of new relatively large pleural effusion on the right and changes of COPD. No obvious infectious infiltrate was noted. PHYSICAL EXAMINATION: VITAL SIGNS: Blood pressure 143/44, pulse 114, respirations 24, O2 saturation currently 88% on 3 L nasal cannula. HEENT: Mouth is dry with evidence of likely thrush. LUNGS: Markedly distant breath sounds. Rales at the right base. HEART: Tachycardic and irregular. ABDOMEN: Normal bowel sounds. Soft and nontender. EXTREMITIES: Showed no edema. LABORATORY DATA: White count yesterday 17.4, creatinine 0.4. Troponin less than 0.017. Urinalysis, 30 to 40 white cells, sent for culture. ASSESSMENT: 1. Respiratory failure secondary to pleural effusion superimposed on severe oxygen-dependent chronic obstructive pulmonary disease. 2. Likely congestive heart failure causing pleural effusion. 3. Anxiety and depression with history of psychosis. 4. Hyperthyroidism. PLAN: We will attempt to diurese her with Lasix, replace BiPAP as needed. We will continue her DNR/DNI status. I have had phone consultation with Amando Burger, her healthcare [id number], filling him in on her condition as well. We will continue to provide palliative care measures for her underlying severe medical illness. I anticipate an additional 2+ days of acute care hospitalization followed by plans to return to the [facility] upon discharge. /[id number] SIGIFREDO/KIRK
[2019-03-02] MEDS ORDERED: cefTRIAXone 1 GM in Sodium Chloride 0.9% 50 ML IV ONE (12:56)
[2019-03-02] MEDS ORDERED: cefTRIAXone 1 GM Vial IVPUSH ONE (13:00)
[2019-03-02] MEDS: Melatonin 3 MG Tab PO SCH (20:15)
[2019-03-02] MEDS: Mirtazapine 15 MG Tab PO SCH (20:17)
[2019-03-02] MEDS: risperiDONE 0.5 MG Tab PO SCH (20:18)
[2019-03-02] MEDS: Formoterol/Mometasone 200-5 MCG 8.8 GM Inhaler IH SCH (20:47)
[2019-03-02] MEDS ORDERED: risperiDONE 0.25 MG Tab PO SCH (21:00)
[2019-03-03] MEDS: Albuterol/Ipratropium 3.0-0.5 MG/3 ML Neb Soln NEB SCH ×6 (01:20→20:30)
[2019-03-03] MEDS ORDERED: Piperacillin/Tazobactam 3.375 GM in Sodium Chloride 0.9% 50 ML IV SCH (08:00)
--- NOTE | 2019-03-03 08:25 | PN ---
DATE SEEN: 03/03/2019 HISTORY: Danita is a 79-year-old woman with severe oxygen-dependent COPD, who came in to the hospital because of respiratory difficulty on 03/01/2019. She required CPAP overnight the first night of hospitalization and again last night, she required BiPAP for respiratory support. Findings on admission included a large right pleural effusion. She was treated with oral Lasix and has diuresed. PHYSICAL EXAMINATION: GENERAL: She was examined with her mask in place, but could answer questions appropriately and was alert. VITAL SIGNS: Blood pressure 122/42, pulse 98 and regular, respirations 26, and O2 saturation 92% on 3 L nasal cannula with BiPAP in place, and temperature 97.6. SKIN: Shows no rash or trauma. NEUROLOGIC: She is awake and alert with mask in place. LUNGS: With assisted breath show fair air movement to both bases with rales present on the left. HEART: Regular with frequent extrasystoles. No murmur heard. ABDOMEN: Soft and nontender. EXTREMITIES: Showed no edema. DIAGNOSTIC STUDIES: Chest x-ray from admission showed a large right pleural effusion. No obvious infiltrates. Urine grew Pseudomonas and other labs included creatinine of 0.4, hemoglobin of 11.8. Urinalysis, 30 to 40 white cells. PLAN: The patient's BiPAP will be removed again this morning. Because of the Pseudomonas, her antibiotic will be changed. We will continue to diurese her, recheck her chest x-ray and consider thoracentesis. We will continue to provide palliative care measures for Ms. Simmons and maintain her DNR status. /[id number] RO/MODL
[2019-03-03] MEDS: Nystatin Susp 100,000 Unit/ML 5 ML UD Cup PO SCH ×4 (08:29→20:34)
[2019-03-03] MEDS: Formoterol/Mometasone 200-5 MCG 8.8 GM Inhaler IH SCH ×2 (08:29→20:35)
[2019-03-03] MEDS: Furosemide 80 MG Tab PO SCH (08:29)
[2019-03-03] MEDS: Methimazole 5 MG Tab PO SCH (08:29)
[2019-03-03] MEDS: Losartan 25 MG Tab PO SCH (08:29)
[2019-03-03] MEDS: risperiDONE 0.25 MG Tab PO SCH (08:30)
[2019-03-03] MEDS: Acetaminophen 500 MG Tab PO SCH ×3 (08:30→20:34)
[2019-03-03] MEDS: INCRUSE ELLIPTA 62.5 MCG INH SCH (08:30)
[2019-03-03] MEDS: Gentamicin 240 MG in Sodium Chloride 0.9% 100 ML IV SCH (11:01)
[2019-03-03] MEDS: risperiDONE 0.5 MG Tab PO SCH (20:33)
[2019-03-03] MEDS: Mirtazapine 15 MG Tab PO SCH (20:34)
[2019-03-03] MEDS: Melatonin 3 MG Tab PO SCH (20:34)
[2019-03-04] MEDS: Albuterol/Ipratropium 3.0-0.5 MG/3 ML Neb Soln NEB SCH ×6 (01:23→20:47)
[2019-03-04] MEDS: INCRUSE ELLIPTA 62.5 MCG INH SCH (08:08)
[2019-03-04] MEDS: risperiDONE 0.25 MG Tab PO SCH (08:08)
[2019-03-04] MEDS: Acetaminophen 500 MG Tab PO SCH ×3 (08:08→20:47)
[2019-03-04] MEDS: Furosemide 80 MG Tab PO SCH (08:08)
[2019-03-04] MEDS: Losartan 25 MG Tab PO SCH (08:08)
[2019-03-04] MEDS: Nystatin Susp 100,000 Unit/ML 5 ML UD Cup PO SCH ×4 (08:08→20:47)
[2019-03-04] MEDS: Methimazole 5 MG Tab PO SCH (08:08)
[2019-03-04] MEDS: Formoterol/Mometasone 200-5 MCG 8.8 GM Inhaler IH SCH ×2 (08:08→20:50)
[2019-03-04] MEDS: Gentamicin 240 MG in Sodium Chloride 0.9% 100 ML IV SCH (10:04)
[2019-03-04] MEDS: Sodium Chloride 0.9% 10 ML Syringe FLUSH PRN (10:05)
--- NOTE | 2019-03-04 11:15 | PN ---
DATE SEEN: 03/04/2019 HISTORY: Danita is a 79-year-old woman with severe end-stage oxygen-dependent COPD. She was admitted on 03/01/2019 to [facility] because of severe dyspnea. She was found to have her previous changes of COPD and superimposed was a relatively large right pleural effusion with cardiomegaly. She had no prior documented heart history. She was diuresed with IV and then oral Lasix. She was found have a urinary tract infection with Pseudomonas and she was initially started on piperacillin. It was resistant and she was changed to gentamicin. Her outpatient medications were continued and she was placed on nystatin suspension for thrush. Danita required 3 different episodes where she had to be placed on BiPAP to keep her respirations satisfactory. She has diuresed now approximately 3 pounds and had a comfortable night overnight without the need for BiPAP. OBJECTIVE: GENERAL: This morning, she was awake, alert, comfortable, and has good color. She looked definitely improved. VITAL SIGNS: Weight 105.4 pounds, this is down from 107 pounds 9 ounces on March 02. Blood pressure 111/64, pulse 105 and irregular, O2 saturation 98% on 3 L nasal cannula. SKIN: Clear without rash. There are slight ecchymoses on her arms. HEART: Regular. LUNGS: Have distant breath sounds with rales at the right base. ABDOMEN: Soft. EXTREMITIES: Show no edema. ASSESSMENT: 1. Severe chronic obstructive pulmonary disease exacerbation with superimposed congestive heart failure. 2. Hypertension. 3. Urinary tract infection. PLAN: We will get her out of ICU today to regular medical-surgical floor. Plan to repeat her chest x-ray in the morning. Continue her diuresis and anticipate discharge to home in 24 to 48 hours. /[id number] SIGIFREDO/KIRK
[2019-03-04] MEDS: Melatonin 3 MG Tab PO SCH (20:47)
[2019-03-04] MEDS: risperiDONE 0.5 MG Tab PO SCH (20:47)
[2019-03-04] MEDS: Mirtazapine 15 MG Tab PO SCH (20:47)
[2019-03-05] MEDS: Albuterol/Ipratropium 3.0-0.5 MG/3 ML Neb Soln NEB SCH ×3 (01:09→09:39)
[2019-03-05] MEDS: Gentamicin 240 MG in Sodium Chloride 0.9% 100 ML IV SCH (09:33)
[2019-03-05] MEDS: Sodium Chloride 0.9% 10 ML Syringe FLUSH PRN (09:37)
[2019-03-05] MEDS: Losartan 25 MG Tab PO SCH (09:38)
[2019-03-05] MEDS: Formoterol/Mometasone 200-5 MCG 8.8 GM Inhaler IH SCH (09:39)
[2019-03-05] MEDS: INCRUSE ELLIPTA 62.5 MCG INH SCH (09:40)
[2019-03-05] MEDS: Methimazole 5 MG Tab PO SCH (09:40)
[2019-03-05] MEDS: Nystatin Susp 100,000 Unit/ML 5 ML UD Cup PO SCH (09:40)
[2019-03-05] MEDS: Furosemide 80 MG Tab PO SCH (09:40)
[2019-03-05] MEDS: Acetaminophen 500 MG Tab PO SCH (09:41)
[2019-03-05] MEDS: risperiDONE 0.25 MG Tab PO SCH (09:41)
--- NOTE | 2019-03-05 14:26 | HP ---
ADMISSION DATE: 03/01/2019 HISTORY OF PRESENT ILLNESS: Ms. Simmons is a 79-year-old woman with severe oxygen- dependent end-stage COPD. She was admitted to acute care at [place] on 03/01/2019 for respiratory failure. She was treated with BiPAP oxygen respiratory therapy for 2 days. She was found to have pleural effusion and urinary tract infection, which were both treated with diuretics and antibiotics, gentamicin for resistant Pseudomonas. She has been improved enough to be discharged from acute care and is now admitted to swing bed at [place] for further recuperation, strengthening with a goal of returning to her home upon discharge. PAST MEDICAL HISTORY: 1. Severe COPD as mentioned. 2. She also has history of depression with mild dementia. 3. Chronic essential hypertension. 4. Hypothyroidism. 5. As mentioned, this new pleural effusion felt to be due to mild CHF. Echocardiogram accomplished while hospitalized showed slightly decreased left ventricular function, but maintenance of an acceptable cardiac output. 6. She also has osteoporosis with kyphosis. MEDICATIONS: See admission list. ALLERGIES: None. HABITS: Long history of smoking, none currently. No alcohol. SOCIAL HISTORY: The patient is retired and now resides at [facility]. REVIEW OF SYSTEMS: GENERAL: No high fever, chills, or sweats. She does have a cough. She has poor vision. No abdominal pain, nausea, or vomiting. She has chronic constipation. No joint inflammation or skin rash. PHYSICAL EXAMINATION: GENERAL: She is pale, thin, obviously extremely weak. VITAL SIGNS: Blood pressure 111/64, pulse 110 and irregular, respirations 20. Weight 104 pounds. SKIN: Shows no rash. HEENT: Shows her mouth to be dry. LUNGS: Have extremely distant breath sounds with faint wheeze. No consolidation. HEART: Irregular and rapid. ABDOMEN: Soft and nontender. EXTREMITIES: Show no edema. ASSESSMENT: 1. Severe chronic obstructive pulmonary disease with respiratory failure exacerbated by right pleural effusion. 2. Hypothyroidism. 3. Osteoporosis. 4. Hypertension. 5. Constipation. 6. Depression. 7. Mild dementia. PLAN: Brief swing bed stay is expected for further strengthening until she can return to her place of residence. Follow up jak /[id number] SIGIFREDO/KIRK
--- NOTE | 2019-03-05 17:34 | DISCH ---
DISCHARGE DATE: 03/05/2019 HISTORY OF PRESENT ILLNESS: Ms. Simmons is a 79-year-old woman from [place] with a history of severe end-stage oxygen dependent COPD. She came in through the emergency room on 03/01/2019 because of respiratory failure. She was treated with oxygen and BiPAP. She was found to have a right pleural effusion and was diuresed. She was also found to have a urinary tract infection with Pseudomonas resistant to Zosyn or piperacillin and she was given gentamicin IV for 3 days. Her breathing improved such that she required no BiPAP for the past 2 days. She is maintained on 3 L of nasal cannula oxygen, but is extremely weak and is unable to get out of bed to stand by herself. She is ready for discharge from acute care to swing bed where she will receive continued therapy, strengthening with a goal of returning to her home upon discharge. MEDICATIONS ON DISCHARGE: See current list. Pending at the time of discharge are a followup chest x-ray and a followup urinalysis. /[id number] SIGIFREDO/KIRK
--- NOTE | 2019-03-06 08:27 | DISCH ---
DISCHARGE DATE: 03/05/2019 CORRECTION: This discharge summary is not to swing bed. She resides at [facility] so discharge would be to back to [facility] where she can receive continued therapy. /[id number] TATA
== END 2019-03-05 12:15 | disposition swing bed (61) | DRG 291 ==
LOC: FB.ED 06:54 → FB.MS 09:35 → FB.ICU 03-02 00:15 → FB.MS 03-04 09:19
PROVIDERS: ADMIT Family Medicine; ATTEND Family Medicine
DX: J90 Pleural effusion, not elsewhere classified (principal); I11.0 Hypertensive heart disease with heart failure; R06.03 Acute respiratory distress; I10 Essential (primary) hypertension; J96.90 Respiratory failure, unspecified, unspecified whether with hypoxia or hypercapnia; J44.1 Chronic obstructive pulmonary disease with (acute) exacerbation; N39.0 Urinary tract infection, site not specified; F32.3 Major depressive disorder, single episode, severe with psychotic features; I50.9 Heart failure, unspecified; Z87.891 Personal history of nicotine dependence; E05.90 Thyrotoxicosis, unspecified without thyrotoxic crisis or storm; R53.1 Weakness; H26.9 Unspecified cataract; B96.5 Pseudomonas (aeruginosa) (mallei) (pseudomallei) as the cause of diseases classified elsewhere; F03.90 Unspecified dementia, unspecified severity, without behavioral disturbance, psychotic disturbance, mood disturbance, and anxiety; K59.00 Constipation, unspecified; F51.04 Psychophysiologic insomnia; M81.0 Age-related osteoporosis without current pathological fracture; M40.209 Unspecified kyphosis, site unspecified; I49.3 Ventricular premature depolarization; Z90.49 Acquired absence of other specified parts of digestive tract; Z99.81 Dependence on supplemental oxygen; Z79.51 Long term (current) use of inhaled steroids; Z79.899 Other long term (current) drug therapy; Z66 Do not resuscitate
CPT/HCPCS: 36415; 36600; 71045; 80048; 82550; 82803; 83605; 83880; 84443; 84484; 85025; 87040 ×2; 93005; 94640; 96374; 99285; J2930; 71046; 71250; 80053; 81001; 87086; 87088; 87186; 93308; 94660; A9270-GY; J0696; J1580; J2543; J7030; J7050; J7620-GY

== ENCOUNTER → 2019-06-17 | Outpatient (CLI) | payer MEDICARE, BC ==
--- NOTE | 2019-06-18 11:38 | CR ---
INDICATION: Shortness of breath. CHEST: PA and lateral views of the chest, 06/17/19, were compared with and 03/03/19. Bibasilar pleural parenchymal changes are noted, compatible with pneumonia and pleuritis, much more prominent at the left lower lobe than on the right. Some of the changes on the right may have been present on the previous study and/or are recurrent or due to fibrosis. Hyperaeration and prominent AP diameter with slightly flattened diaphragm leaves suggests the possibility of COPD - correlate clinically. Osteoporotic compression fractures are noted at the lower thoracic spine of indeterminate age with accentuated dorsal kyphosis in that area. There is also noted a dextroconvex scoliosis of moderate degree in the upper thoracic spine. The aorta is mildly tortuous with calcification in the arch. The heart appears to be slightly enlarged or at the upper limits of normal in size. No evidence of CHF is seen. IMPRESSION: 1. Bibasilar pleural parenchymal changes, left much greater than right, compatible with pneumonia and pleuritis - correlate clinically. 2. ASHD. 3. Osteoporosis with compression fractures and scoliosis. 4. Possible COPD - correlate clinically. MTDD
== END ==
LOC: FB.CLBR 15:54
PROVIDERS: ATTEND Nurse Practitioner Family
DX: R06.02 Shortness of breath (principal); I25.10 Atherosclerotic heart disease of native coronary artery without angina pectoris; M41.84 Other forms of scoliosis, thoracic region; M80.08XA Age-related osteoporosis with current pathological fracture, vertebra(e), initial encounter for fracture; J18.9 Pneumonia, unspecified organism
CPT/HCPCS: 71046; 99213

== ENCOUNTER 2019-09-18 16:23 | Emergency (ER) | payer MEDICARE, BC ==
[2019-09-18] MEDS ORDERED: Albuterol/Ipratropium 3.0-0.5 MG/3 ML Neb Soln NEB ONE ×2 (18:05→19:32)
[2019-09-18] MEDS ORDERED: methylPREDNISolone Sodium Succinate 125 MG/2 ML SDV IM ONE (18:05)
[2019-09-18] MEDS ORDERED: cefTRIAXone 1 GM in Sodium Chloride 0.9% 50 ML IV ONE (18:06)
--- NOTE | 2019-09-18 18:08 | EDM.PDOC ---
ED HPI GENERAL MEDICAL PROBLEM - General Chief Complaint: Respiratory Problem Stated Complaint: SOB Time Seen by Provider: 09/18/19 16:25 Source of Information: Reports: Patient, Mcc Records History Limitations: Reports: No Limitations - History of Present Illness INITIAL COMMENTS - FREE TEXT/NARRATIVE: pt with end stage COPd has been more sob , and has tightness in the chest On 02 2 liters and oxygen saturation in the low 90's , has been given Neb and seems not to be improving not coughing, much but more sob at rest - Related Data Allergies Allergy/AdvReac Type Severity Reaction Status Date / Time No Known Allergies Allergy Verified 03/01/19 07:41 Home Meds: Home Meds Losartan [Cozaar] 75 mg PO DAILY 10/20/18 [History] Umeclidinium [place] [Incruse Ellipta] 62.5 mcg INH DAILY 10/20/18 [History] methIMAzole [Methimazole] 5 mg PO DAILY 10/20/18 [History] risperiDONE 0.25 mg PO DAILY 10/20/18 [History] risperiDONE 0.5 mg PO BEDTIME 10/20/18 [History] Mometasone/Formoterol [Dulera 200 MCG/5 MCG] 2 puff INH BID 10/28/18 [History] Acetaminophen [Tylenol Extra Strength] 1,000 mg PO TID 03/01/19 [History] Mirtazapine 7.5 mg BEDTIME 03/01/19 [History] Albuterol/Ipratropium [DuoNeb 3.0-0.5 MG/3 ML] 3 ml NEB Q4H neb 03/05/19 [Rx] Furosemide [Lasix] 80 mg PO DAILY tablet 03/05/19 [Rx] Cefuroxime Axetil [Ceftin] 500 mg PO BIDAC #10 tablet 09/18/19 [Rx] LORazepam [Ativan] 0.5 mg PO BID PRN #10 tablet 09/18/19 [Rx] guaiFENesin [Mucinex] 600 mg PO BID #30 tab.er.12h 09/18/19 [Rx] predniSONE [Prednisone] 50 mg PO DAILY #5 tablet 09/18/19 [Rx] Past Medical History HEENT History: Reports: Cataract Cardiovascular History: Reports: Hypertension Respiratory History: Reports: COPD, Other (See Below) Other Respiratory History: has been on BIPAP Gastrointestinal History: Reports: Hemorrhoids Genitourinary History: Reports: Urinary Incontinence [employer] History: Reports: Musculoskeletal History: Reports: Other (See Below) Other Musculoskeletal History: extreme weakness Endocrine/Metabolic History: Reports: Hyperthyroidism - Infectious Disease History Infectious Disease History: Reports: Chicken Pox, Measles, Shingles - Past Surgical History Other HEENT Surgeries/Procedures: States she has not had cataract surgery. Social & Family History - Family History Family Medical History: Noncontributory - Caffeine Use Caffeine Use: Reports: Coffee ED ROS GENERAL - Review of Systems Review Of Systems: See Below Constitutional: Reports: Malaise, Weakness HEENT: Reports: No Symptoms Respiratory: Reports: Shortness of Breath, Wheezing, Sputum Cardiovascular: Reports: Dyspnea on Exertion Endocrine: Reports: Fatigue GI/Abdominal: Reports: No Symptoms Musculoskeletal: Reports: Back Pain Neurological: Reports: No Symptoms Psychiatric: Reports: Anxiety Hematologic/Lymphatic: Reports: No Symptoms Immunologic: Reports: No Symptoms ED EXAM, GENERAL - Physical Exam Exam: See Below Free Text/Narrative:: pt sitting in no obvious distress , able to converse Exam Limited By: No Limitations Eye Exam: Bilateral Eye: EOMI Throat/Mouth: Normal Oropharynx Head: Atraumatic Neck: Supple, Non-Tender, Full Range of Motion Respiratory/Chest: Decreased Breath Sounds, Crackles, Rales, Wheezing, Accessory Muscle Use, Retractions Cardiovascular: Regular Rate, Rhythm Neurological: Alert, Oriented, CN II-XII Intact Psychiatric: Normal Affect Skin Exam: Warm Course - Orders/Labs/Meds Orders: Active Orders 24 hr Category Date Time Status RT Aerosol Therapy [RC] ASDIRECTED Care 09/18/19 18:05 Active RT Aerosol Therapy [RC] ASDIRECTED Care 09/18/19 19:32 Ordered Chest wo Cont [CT] Stat Exams 09/18/19 18:03 Ordered Meds: Medications Discontinued Medications Generic Name Dose Route Start Last Admin Trade Name Freq PRN Reason Stop Dose Admin Albuterol/Ipratropium 3 ml 09/18/19 18:05 Duoneb 3.0-0.5 Mg/3 Ml NEB 09/18/19 18:06 ONETIME ONE Albuterol/Ipratropium 3 ml 09/18/19 19:32 Duoneb 3.0-0.5 Mg/3 Ml NEB 09/18/19 19:33 ONETIME ONE Ceftriaxone Sodium 1 gm/ 50 mls @ 200 mls/hr 09/18/19 18:06 Sodium Chloride IV 09/18/19 18:20 ONETIME ONE Methylprednisolone Sodium Succinate 125 mg 09/18/19 18:05 Solu-Medrol IM 09/18/19 18:06 ONETIME ONE - Re-Assessments/Exams Free Text/Narrative Re-Assessment/Exam: 09/18/19 19:45 on arrival pt given Duoneb then sent for CT chest : radiologist recommended chest Xray first then CT chest as needed Chest xray showed : hyperinflation with exacerbation of COPD , no infiltrates suggestive of pneumonia pt given IM Rocephin, then given another Duoneb Departure - Departure Time of Disposition: 20:00 Disposition: DC/Tfer to SNF 03 Condition: Fair Clinical Impression: COPD with acute exacerbation, COPD exacerbation, On home oxygen therapy, Anxiety - Discharge Information *PRESCRIPTION DRUG MONITORING PROGRAM REVIEWED*: Not Applicable *COPY OF PRESCRIPTION DRUG MONITORING REPORT IN PATIENT FARSHAD: Not Applicable Prescriptions: Cefuroxime Axetil [Ceftin] 500 mg PO BIDAC #10 tablet predniSONE [Prednisone] 50 mg PO DAILY #5 tablet Referrals: Juan Diehl MD [Primary Care Provider] - Forms: ED Department Discharge Additional Instructions: 1) Continue with all other medications as recommended 2) make appt to see PCP for possible anxiety symptoms 3) Return to ER as needed Sepsis Event Note - Focused Exam Date Exam was Performed: 09/18/19 Time Exam was Performed: 19:43 - My Orders Last 24 Hours: My Active Orders 09/18/19 18:03 Chest wo Cont [CT] Stat 09/18/19 18:05 RT Aerosol Therapy [RC] ASDIRECTED 09/18/19 19:32 RT Aerosol Therapy [RC] ASDIRECTED - Assessment/Plan Last 24 Hours: My Active Orders 09/18/19 18:03 Chest wo Cont [CT] Stat 09/18/19 18:05 RT Aerosol Therapy [RC] ASDIRECTED 09/18/19 19:32 RT Aerosol Therapy [RC] ASDIRECTED
[2019-09-18] MEDS ORDERED: Sodium Chloride 0.9% 10 ML Syringe FLUSH PRN (18:15)
--- NOTE | 2019-09-18 19:10 | CR ---
INDICATION: COPD exacerbation. Follow up pneumonia. CHEST, TWO VIEWS: PA and lateral views of the chest 09/18/19 were compared with 08/17/18 and revealed complete clearing of pneumonia at the lung bases seen on the previous study, much worse throughout the left than right. No consolidating pneumonia or effusion was seen on the current study. Findings compatible with COPD are again noted. The heart is enlarged in general with aorta tortuous and calcified in the arch. Diminished bone density is noted, compatible with osteoporosis with osteoporotic compressions at the lower thoracic spine apparently present previously. A moderately severe dextroconvex scoliosis of the upper thoracic spine is noted. IMPRESSION: 1. No definite acute process. 2. COPD. 3. ASHD. 4. Osteoporosis with compression fractures that appear stable and accentuated dorsal kyphosis. Dextroconvex scoliosis upper thoracic spine also noted. Result was called to Dr. De Jesus at approximately 1900 hours. [facility]
== END 2019-09-18 20:10 ==
LOC: FB.ED 16:23
DX: J45.901 Unspecified asthma with (acute) exacerbation (principal); F41.9 Anxiety disorder, unspecified; I10 Essential (primary) hypertension; Z79.52 Long term (current) use of systemic steroids; Z79.899 Other long term (current) drug therapy; Z99.81 Dependence on supplemental oxygen
CPT/HCPCS: 71046; 94640; 96374; 96375; 99284; 99285; J0696; J2930; J7050; J7620-GY